=== PATIENT | male | born 1950 | race Caucasian/White ===

== ENCOUNTER → 2021-01-11 11:02 | Outpatient (CLI) | payer MEDICARE, OTHER, SELFPAY ==
[2021-01-11 20:58] LABS: COVID19 - ORCAS (NP or Nasal) Negative (Negative)
== END ==
PROVIDERS: Visit Provider Physician Assistant
DX: Z20.822 Contact with and (suspected) exposure to COVID-19 (principal); R05.9 Cough, unspecified
CPT/HCPCS: U0003

== ENCOUNTER → 2023-05-28 14:57 | Outpatient (CLI) | payer MEDICARE, OTHER, SELFPAY ==
--- NOTE | 2023-05-28 15:00 | DI.CT.S_ITS ---
PROCEDURE: CT LUNG LOW DOSE SCREENING INDICATIONS: lung cancer screening TECHNIQUE: Noncontrast 2.0-2.5 mm thick sections acquired from the pulmonary apices to the posterior costophrenic angles. 7 mm thick axial MIP, and 5 mm coronal and sagittal reformats were then acquired. For radiation dose reduction, the following was used: automated exposure control, adjustment of mA and/or kV according to patient size. COMPARISON: [facility], CT, CT LOW DOSE LUNG CA SCREENING, 03/29/2020, 14:47. FINDINGS: Image quality: Diagnostic. Lower Neck: No enlarged lymph nodes. Thyroid: No thyroid nodules which require sonographic follow up, per consensus guidelines. Axillae: No enlarged lymph nodes. Chest Wall: Unremarkable. Bones: Unremarkable. Lungs and Pleura: No pneumothorax or pleural effusions. There is moderate centrilobular emphysema with an apical predominance. Focal airspace opacities are present within the superior segment of the left lower lobe (series 3/image 121). Heart: Heart size is normal. No pericardial effusion. Thoracic Vessels: The aorta and pulmonary arteries demonstrate normal size. Scattered atheromatous calcifications are present within the aortic arch. Mediastinum and Chloe: No enlarged lymph nodes. Esophagus: No wall thickening. No hiatal hernia. Upper Abdomen: Visualized upper abdomen solid organs and bowel loops appear normal. IMPRESSION: 1. Focal airspace opacities within the superior segment of the left lower lobe suspicious for aspiration/infection. 2. No suspicious pulmonary nodules or mass lesions which require follow-up. LUNG-RADS 3; probably benign. Consider 3-6 month follow-up to ensure resolution of this finding. Clinically Significant Non-pulmonary Findings: Thoracic aortic atherosclerosis. Dictated by: Rona Leyva M.D. on 05/28/2023 at 16:06 Approved by: Rona Leyva M.D. on 05/28/2023 at 16:11
== END ==
LOC: CT 14:59
PROVIDERS: PCP Family Medicine; Referring Provider Internal Medicine; Visit Provider Internal Medicine
DX: Z12.2 Encounter for screening for malignant neoplasm of respiratory organs (principal); F17.218 Nicotine dependence, cigarettes, with other nicotine-induced disorders; J43.2 Centrilobular emphysema; I70.0 Atherosclerosis of aorta
CPT/HCPCS: 71271

== ENCOUNTER → 2023-12-09 12:21 | Outpatient (CLI) | payer MEDICARE, OTHER, SELFPAY ==
--- NOTE | 2023-12-09 12:22 | DI.CT.S_ITS ---
PROCEDURE: CT CHEST WO CON INDICATIONS: H/o pneumonia, not improving, eval for pneumonia or effusion TECHNIQUE: Noncontrast 5 mm thick sections acquired from the pulmonary apices to the posterior costophrenic angles. 1 mm lung window, 5 mm thick coronal and sagittal and 7 mm axial MIP reformats were then acquired. For radiation dose reduction, the following was used: automated exposure control, adjustment of mA and/or kV according to patient size. COMPARISON: [facility], CT, CT LUNG LOW DOSE SCREENING, 05/28/2023, 15:16. FINDINGS: Image quality: Diagnostic. Lower Neck: No enlarged lymph nodes. Thyroid: Stable size of a partially obscured 1.9 cm left thyroid nodule. Axillae: No enlarged lymph nodes. Chest Wall: Unremarkable. Bones: Unremarkable. Lungs and Pleura: Extensive centrilobular emphysema involving both upper lobes. 5.4 cm x 2.8 cm ovoid soft tissue mass with central cavitation and adjacent cystic changes. Slightly more inferiorly, there is a 2.1 cm S rounded spiculated mass associated with this cavitary lesion. Focal area of subpleural soft tissue thickening along the medial right upper lobe abutting the mediastinum. Area of consolidation with bronchiectasis involving the superior segment of the left lower lobe. These findings are all new compared to prior chest CT of 05/28/2023. No evidence of pneumothorax or pleural effusion. Heart: Heart size is normal. No pericardial effusion. Left-sided pacemaker is in place with leads terminating in the right atrium, right ventricle and coronary sinus. Thoracic Vessels: The aorta and pulmonary arteries demonstrate normal size. Mediastinum and Chloe: No enlarged lymph nodes. Esophagus: No wall thickening. No hiatal hernia. Upper Abdomen: Visualized upper abdomen solid organs and bowel loops appear normal. IMPRESSION: 1. 5.4 cm x 2.8 cm ovoid right upper lobe soft tissue mass with central cavitation and adjacent cystic changes seen within a background of extensive centrilobular emphysema. Slightly more inferiorly, there is a 2.1 cm rounded spiculated soft tissue mass associated with this cavitary lesion. These findings are new compared to prior chest CT of 05/28/2023 and could represent necrotizing pneumonia with adjacent scar, however, an underlying neoplasm is not entirely excluded. Continued chest CT follow-up in 3 months and/or comparison with more recent outside imaging is recommended. 2. Focal area of subpleural soft tissue thickening along the medial right upper lobe abutting the mediastinum and area of consolidation within the superior segment of the left lower lobe with associated bronchiectasis and adjacent architectural distortion possibly related to scarring. Continued follow-up with attention to these abnormalities on follow-up chest CT is recommended. Dictated by: Fam Hunt M.D. on 12/09/2023 at 16:43 Approved by: Fam Hunt M.D. on 12/09/2023 at 16:55
== END ==
PROVIDERS: PCP Family Medicine; Referring Provider Internal Medicine Critical Care Medicine; Visit Provider Internal Medicine Critical Care Medicine
DX: J18.9 Pneumonia, unspecified organism (principal); R91.8 Other nonspecific abnormal finding of lung field; J47.9 Bronchiectasis, uncomplicated; E04.1 Nontoxic single thyroid nodule; J43.2 Centrilobular emphysema; Z95.0 Presence of cardiac pacemaker
CPT/HCPCS: 71250

== ENCOUNTER → 2024-01-11 10:15 | Outpatient (CLI) | payer MEDICARE, OTHER, SELFPAY ==
--- NOTE | 2024-01-11 10:17 | DI.CT.S_ITS ---
PROCEDURE: CT CHEST W CON INDICATIONS: Pneumonia , eval for change TECHNIQUE: After the administration of intravenous contrast, 5 mm thick sections acquired from the pulmonary apices to the posterior costophrenic angles. 1 mm axial lung, 5 mm thick coronal and sagittal reformats and 7 mm axial MIP were acquired. For radiation dose reduction, the following was used: automated exposure control, adjustment of mA and/or kV according to patient size. COMPARISON: [facility], CT, CT CHEST WO CON, 12/09/2023, 12:28. 05/28/2023 low-dose chest CT FINDINGS: Image quality: Diagnostic Lungs and pleura: Background moderate severe emphysema. In the right upper lobe, the area of cavitary consolidation has decreased measuring a thickness of 1.3 cm previously 2.5 cm. The spiculated nodule along the fissure however is similar measuring 2 x 1.9 cm (3/133, 115). Similar scarring in the medial portion of the right upper lobe. In the left lung, persistent bronchiectasis and architectural distortion is seen in the posterior mid lung (3/140) measuring a thickness of 1.4 cm. No this is new from 05/28/2023. Other smaller nodules are present, for example a cystic region in the right lung apex with thickened wall (3/66) and another cystic region with thickened wall in the left anterior lung 3/152. No pleural effusions. Mediastinum, heart, and esophagus: A left chest wall pulse generator with electrode leads is seen. No hiatal hernia. There are bilateral pulmonary emboli, particularly seen along the wall in a peripheral orientation. The most proximal region reaches the right and left pulmonary arteries. No definite focal enlarged lymph node identified. Chest wall and thyroid: 1.7 cm left thyroid nodule. Chest wall is unremarkable. Upper abdomen: No gross abnormality upper abdomen Bones: There are degenerative changes. IMPRESSION: Bilateral pulmonary emboli involving the right and left pulmonary arteries extending to the segmental and subsegmental branches, peripheral position of the clot is suggestive of subacute to chronic time course. Spiculated right mid lung nodule along the fissure measuring up to 2 cm is suspicious for primary lung malignancy. Right upper lung area of cavitary consolidation has decreased, with moderate persistent opacity and architectural distortion. Persistent bronchiectasis and opacity with architectural distortion also seen in the mid posterior left lung. These are moderate suspicion for malignancy versus persistent infection. Other smaller nodules are present, particularly seen as wall thickening at the periphery of pulmonary cystic changes. These are suspicious for indolent/early malignancies. A PET-CT could be helpful Dictated by: Sunil Evans M.D. on 01/11/2024 at 16:04 Approved by: Sunil Evans M.D. on 01/11/2024 at 16:17
[2024-01-11 10:52] LABS: BUN Creatinine Ratio 22.9 (6-22); Blood Urea Nitrogen 40 mg/dL (9-20); Calcium 9.2 mg/dL (8.4-10.2); Carbon Dioxide 27 mmol/L (22-32); Chloride 102 mmol/L (98-107); Estimated Glomerular Filt Rate 41 mL/min (>60); Glucose 131 mg/dL (80-110); HEMOLYSIS < 15 (0-50); Potassium 5.2 mmol/L (3.4-5.1); Sodium 135 mmol/L (137-145)
== END ==
PROVIDERS: PCP Family Medicine; Referring Provider Internal Medicine Critical Care Medicine; Visit Provider Internal Medicine Critical Care Medicine
DX: J18.9 Pneumonia, unspecified organism (principal); I26.99 Other pulmonary embolism without acute cor pulmonale; I28.8 Other diseases of pulmonary vessels; R91.8 Other nonspecific abnormal finding of lung field; J47.9 Bronchiectasis, uncomplicated
CPT/HCPCS: 36415; 71260; 80048; Q9967

== ENCOUNTER 2024-01-11 18:32 | Inpatient (IN) | payer MEDICARE, OTHER, SELFPAY ==
[2024-01-11] VITALS (16 sets, daily range): BP systolic 108–133; BP diastolic 59–86; PULSE 67–90; RESP 17–28; TEMP 37.2; O2SAT 93–98; BMI 24.0
--- NOTE | 2024-01-11 18:42 | ED.GENADULT ---
HPI - General Adult <Joy Dorado MD - Last Filed: 01/12/24 07:13> General Chief complaint: Shortness of Breath/Dyspnea Stated complaint: sent by doctor, carmenisim Time Seen by Provider: 01/11/24 18:39 History of Present Illness HPI narrative: 73-year-old male with history of emphysema, tobacco abuse, coronary disease, permanent pacemaker presents for pulmonary embolism. Patient has been under the care of pulmonology Dr. García for pneumonia. Patient states that he has been short of breath for the last month and a half, worse over the last 3 weeks. He has been on prednisone, nebulizers, and Augmentin without improvement. Today the patient had an outpatient CT scan to assess the progression pneumonia. On the CT scan bilateral pulmonary emboli were noted. Patient was called back to the emergency department for repeat evaluation. Patient states that while lying in the ED bed he was not short of breath, however if he gets up to walk around he feels very winded, and this has progressed rapidly over the last 3 weeks. He still smokes cigarettes. He does not wear oxygen at home. Related Data Home Medications Medication Instructions Recorded Confirmed albuterol sulfate 90 mcg/actuation 2 inh inhalation Q4H PRN 05/14/23 11/12/23 breath activated powder inhaler atorvastatin 20 mg tablet 20 mg PO BEDTIME 05/14/23 11/12/23 carvedilol 25 mg tablet 25 mg PO BID 05/14/23 11/12/23 glipizide 2.5 mg tablet 2.5 mg PO DAILY 05/14/23 11/12/23 lisinopril 10 mg tablet 10 mg PO BID 05/14/23 11/12/23 metformin 500 mg tablet 500 mg PO BID 05/14/23 11/12/23 spironolactone 25 mg tablet 25 mg PO DAILY 05/14/23 11/12/23 umeclidinium 62.5 mcg/actuation 1 inh inhalation DAILY 05/14/23 11/12/23 blister powder for inhalation (Incruse Ellipta) Previous Rx's Medication Instructions Recorded fluticasone fur. 200 mcg-umeclid 1 inh inhalation DAILY #60 ea 05/14/23 62.5 mcg-vilant 25 mcg inhalat.powder (Trelegy Ellipta) prednisone 10 mg tablet 10 mg PO DAILY #90 tabs 05/14/23 furosemide 20 mg tablet 20 mg PO DAILY #5 tabs 11/12/23 ipratropium 0.5 mg-albuterol 3 mg 3 ml inhalation Q6H PRN shortness 11/12/23 (2.5 mg base)/3 mL nebulization of breath or wheezing #90 mL soln prednisone 20 mg tablet 40 mg (2 x 20 mg) PO DAILY #10 tabs 11/12/23 amoxicillin 875 mg-potassium 1 tab PO BID #42 tabs 12/11/23 clavulanate 125 mg tablet Allergies Allergy/AdvReac Type Severity Reaction Status Date / Time No Known Allergies Allergy Uncoded 01/11/24 20:54 Patient History <Joy Dorado MD - Last Filed: 01/12/24 07:13> Social History Smoking Status: Current every day smoker Smoking Status: Current every day smoker Exam <Joy Dorado MD - Last Filed: 01/12/24 07:13> Initial Vital Signs Initial Vital Signs: Vital Signs Blood Pressure 133/80 01/11/24 18:39 Const: Awake, alert, appears chronically unwell Cardiac: regular rate, regular rhythm RESP: unlabored, clear bilaterally MSK: 2+ nonpitting edema of RLE to thigh. No edema LLE Skin: Warm, Dry, intact, no rashes Neuro: AO x3, CN II-XII grossly intact, moves all extremities <Padmaja Ibanez MD - Last Filed: 01/12/24 08:00> Initial Vital Signs Initial Vital Signs: Vital Signs Blood Pressure 133/80 01/11/24 18:39 Course <Joy Dorado MD - Last Filed: 01/12/24 07:13> Orders Ordered: ED Orders 01/11/24 23:02 CT angio chest PE protocol Stat 01/12/24 04:17 EC echo limited Stat Heparin Sodium/Dextrose (Heparin Drip) 25,000 unit in 500 mls @ 27.433 mls/hr IV CONT DANE; Protocol Last Admin: 01/12/24 04:41 Dose: 18 units/kg/hr, 27.433 mls/hr Documented By: LS Co-signed By: HNG Discontinued Medications Enoxaparin Sodium (Enoxaparin 100 Mg/Ml Syringe) 75 mg SUBCUT NOW ONE Stop: 01/11/24 21:46 Last Admin: 01/11/24 21:57 Dose: 75 mg Documented By: ERIN Heparin Sodium/Dextrose (Heparin Drip) 25,000 unit in 500 mls @ 18.289 mls/hr IV CONT DANE; Protocol Last Admin: 01/12/24 04:30 Dose: 12 units/kg/hr, 18.289 mls/hr Documented By: LENI Co-signed By: IDANIA Ceftriaxone Sodium 2,000 mg/ (Sodium Chloride) 100 mls @ 200 mls/hr IV NOW ONE Stop: 01/12/24 04:26 Last Infusion: 01/12/24 04:58 Dose: Infused Documented By: Admin: 01/12/24 04:33 Dose: 200 mls/hr Documented By: LENI Azithromycin 500 mg/ Dextrose 250 mls @ 250 mls/hr IV NOW ONE Stop: 01/12/24 04:26 Last Titration: 01/12/24 06:28 Dose: 0 mls/hr Vital Signs Vital signs: Vital Signs - 8 hr 01/11/24 23:30 01/12/24 00:00 01/12/24 00:01 Pulse Rate 71 Respiratory Rate 22 Blood Pressure 111/59 L 106/66 Pulse Oximetry 96 01/12/24 00:30 01/12/24 00:31 01/12/24 00:31 Pulse Rate 74 74 Respiratory Rate 21 23 Blood Pressure 132/70 Pulse Oximetry 95 95 01/12/24 01:00 01/12/24 01:01 01/12/24 01:30 Pulse Rate 72 74 Respiratory Rate 20 20 Blood Pressure 121/82 Pulse Oximetry 95 94 01/12/24 01:30 01/12/24 02:00 01/12/24 02:00 Pulse Rate 69 Respiratory Rate 21 Blood Pressure 127/74 106/62 Pulse Oximetry 94 01/12/24 02:30 01/12/24 02:30 01/12/24 03:00 Pulse Rate 72 Respiratory Rate 19 Blood Pressure 114/59 L 115/72 Pulse Oximetry 93 01/12/24 03:00 01/12/24 03:30 01/12/24 03:30 Pulse Rate 71 68 Respiratory Rate 20 Blood Pressure 130/73 Pulse Oximetry 93 95 01/12/24 04:00 01/12/24 04:30 01/12/24 04:30 Pulse Rate 70 69 Respiratory Rate 18 Blood Pressure 112/69 Pulse Oximetry 97 95 01/12/24 05:00 01/12/24 05:01 01/12/24 05:01 Pulse Rate 67 72 Respiratory Rate 24 26 H Blood Pressure 95/67 Pulse Oximetry 97 96 01/12/24 05:30 01/12/24 05:30 01/12/24 06:00 Pulse Rate 65 Respiratory Rate 21 Blood Pressure 114/76 125/67 Pulse Oximetry 96 01/12/24 06:00 Pulse Rate 64 Respiratory Rate 22 Blood Pressure Pulse Oximetry 98 <Padmaja Ibanez MD - Last Filed: 01/12/24 08:00> Orders Ordered: ED Orders 01/11/24 23:02 CT angio chest PE protocol Stat 01/12/24 04:17 EC echo limited Stat Heparin Sodium/Dextrose (Heparin Drip) 25,000 unit in 500 mls @ 27.433 mls/hr IV CONT DANE; Protocol Last Admin: 01/12/24 04:41 Dose: 18 units/kg/hr, 27.433 mls/hr Documented By: LENI Co-signed By: IDANIA Discontinued Medications Enoxaparin Sodium (Enoxaparin 100 Mg/Ml Syringe) 75 mg SUBCUT NOW ONE Stop: 01/11/24 21:46 Last Admin: 01/11/24 21:57 Dose: 75 mg Documented By: ERIN Heparin Sodium/Dextrose (Heparin Drip) 25,000 unit in 500 mls @ 18.289 mls/hr IV CONT DANE; Protocol Last Admin: 01/12/24 04:30 Dose: 12 units/kg/hr, 18.289 mls/hr Documented By: LENI Co-signed By: IDANIA Ceftriaxone Sodium 2,000 mg/ (Sodium Chloride) 100 mls @ 200 mls/hr IV NOW ONE Stop: 01/12/24 04:26 Last Infusion: 01/12/24 04:58 Dose: Infused Documented By: Admin: 01/12/24 04:33 Dose: 200 mls/hr Documented By: LENI Azithromycin 500 mg/ Dextrose 250 mls @ 250 mls/hr IV NOW ONE Stop: 01/12/24 04:26 Last Titration: 01/12/24 06:28 Dose: 0 mls/hr Vital Signs Vital signs: Vital Signs - 8 hr 01/11/24 23:30 01/12/24 00:00 01/12/24 00:01 Pulse Rate 71 Respiratory Rate 22 Blood Pressure 111/59 L 106/66 Pulse Oximetry 96 01/12/24 00:30 01/12/24 00:31 01/12/24 00:31 Pulse Rate 74 74 Respiratory Rate 21 23 Blood Pressure 132/70 Pulse Oximetry 95 95 01/12/24 01:00 01/12/24 01:01 01/12/24 01:30 Pulse Rate 72 74 Respiratory Rate 20 20 Blood Pressure 121/82 Pulse Oximetry 95 94 01/12/24 01:30 01/12/24 02:00 01/12/24 02:00 Pulse Rate 69 Respiratory Rate 21 Blood Pressure 127/74 106/62 Pulse Oximetry 94 01/12/24 02:30 01/12/24 02:30 01/12/24 03:00 Pulse Rate 72 Respiratory Rate 19 Blood Pressure 114/59 L 115/72 Pulse Oximetry 93 01/12/24 03:00 01/12/24 03:30 01/12/24 03:30 Pulse Rate 71 68 Respiratory Rate 20 Blood Pressure 130/73 Pulse Oximetry 93 95 01/12/24 04:00 01/12/24 04:30 01/12/24 04:30 Pulse Rate 70 69 Respiratory Rate 18 Blood Pressure 112/69 Pulse Oximetry 97 95 01/12/24 05:00 01/12/24 05:01 01/12/24 05:01 Pulse Rate 67 72 Respiratory Rate 24 26 H Blood Pressure 95/67 Pulse Oximetry 97 96 01/12/24 05:30 01/12/24 05:30 01/12/24 06:00 Pulse Rate 65 Respiratory Rate 21 Blood Pressure 114/76 125/67 Pulse Oximetry 96 01/12/24 06:00 Pulse Rate 64 Respiratory Rate 22 Blood Pressure Pulse Oximetry 98 Medical Decision Making <Joy Dorado MD - Last Filed: 01/12/24 07:13> Lab Data 01/11/24 18:45 01/11/24 18:45 Labs: Lab Results 01/11/24 Range/Units 18:45 WBC 10.0 (4.5-11.0) X10^3/uL RBC 4.56 (4.5-5.9) X10^6/uL Hgb 13.5 (13.5-17.5) g/dL Hct 41.6 (41-53) % MCV 91.2 (80-100) fL MCH 29.6 (26-34) PG MCHC 32.5 (30-36) % RDW 15.2 H (11.6-14.8) % Plt Count 277 (150-400) X10^3/uL Neut % (Auto) 61.3 (50-75) % Lymph % (Auto) 15.9 L (25-40) % Owen % (Auto) 11.1 (3-14) % Eos % (Auto) 10.8 H (2-4) % Baso % (Auto) 0.9 (0-2) % Neut # (Auto) 6100 (9228-8721) /uL Lymph # (Auto) 1600 (4729-5609) /uL Owen # (Auto) 1100 H (0-900) /uL Eos # (Auto) 1100 H (0-450) /uL Baso # (Auto) 100 (0-100) /uL PT 11.6 (9.4-12.5) SECONDS INR 1.0 (0.9-1.3) Sodium 135 L (137-145) mmol/L Potassium 4.8 (3.4-5.1) mmol/L Chloride 102 (98-107) mmol/L Carbon Dioxide 26 (22-32) mmol/L BUN 37 H (9-20) mg/dL Creatinine 1.48 H (0.66-1.25) mg/dL Estimated GFR 50 L (>60) mL/min BUN/Creatinine Ratio 25.0 H (6-22) Glucose 93 (80-110) mg/dL Calcium 9.0 (8.4-10.2) mg/dL Total Bilirubin 0.4 (0.2-1.3) mg/dL AST 32 (17-59) IU/L ALT 30 (<50) IU/L Alkaline Phosphatase 119 (38-126) U/L Total Creatine Kinase 62 (55-170) U/L Troponin I 0.023 (0.01-0.034) ng/mL NT-Pro-B Natriuret Pep 1770 H (<125) pg/mL Total Protein 6.8 (6.3-8.2) g/dL Albumin 4.0 (3.5-5.0) g/dL Globulin 2.8 (1.7-4.1) g/dL Albumin/Globulin Ratio 1.4 (1.0-2.8) Imaging Data US - DVT: Radiologist's Impression: PROCEDURE: US PERIPH VENOUS LOW EXTREM BI INDICATIONS: BILAT PE, EVAL FOR DVT TECHNIQUE: Real-time imaging, as well as color and pulse Doppler interrogation, were performed of the deep veins of both legs from the inguinal ligament to the popliteal fossa, with documentation of the visualized calf veins. COMPARISON: None. FINDINGS: Right: Internal echoes and incomplete compressibility noted involving the common femoral, entire superficial femoral, popliteal veins. Associated diffuse subcutaneous edema. Veins in the calf appear patent with appropriate compressibility. Left: The common femoral, femoral, popliteal, and the visualized calf veins are normally compressible, and free of intraluminal thrombus. Color and pulse Doppler demonstrate normal phasic intravascular flow. There is normal augmentation response to distal compression maneuver. IMPRESSION: Nonocclusive right lower extremity deep venous thrombosis. Unremarkable left lower extremity deep venous system. Approved by: Bob Angeles M.D. on 01/11/2024 at 22:59 CT scan - chest: Radiologist's Impression: ADDENDUMThis report includes an Addendum and supersedes previous reports for this exam. PROCEDURE: CT CHEST W CON INDICATIONS: Pneumonia , eval for change TECHNIQUE: After the administration of intravenous contrast, 5 mm thick sections acquired from the pulmonary apices to the posterior costophrenic angles. 1 mm axial lung, 5 mm thick coronal and sagittal reformats and 7 mm axial MIP were acquired. For radiation dose reduction, the following was used: automated exposure control, adjustment of mA and/or kV according to patient size. COMPARISON: [facility], CT, CT CHEST WO CON, 12/09/2023, 12:28. 05/28/2023 low-dose chest CT FINDINGS: Image quality: Diagnostic Lungs and pleura: Background moderate severe emphysema. In the right upper lobe, the area of cavitary consolidation has decreased measuring a thickness of 1.3 cm previously 2.5 cm. The spiculated nodule along the fissure however is similar measuring 2 x 1.9 cm (3/133, 115). Similar scarring in the medial portion of the right upper lobe. In the left lung, persistent bronchiectasis and architectural distortion is seen in the posterior mid lung (3/140) measuring a thickness of 1.4 cm. No this is new from 05/28/2023. Other smaller nodules are present, for example a cystic region in the right lung apex with thickened wall (3/66) and another cystic region with thickened wall in the left anterior lung 3/152. No pleural effusions. Mediastinum, heart, and esophagus: A left chest wall pulse generator with electrode leads is seen. No hiatal hernia. There are bilateral pulmonary emboli, particularly seen along the wall in a peripheral orientation. The most proximal region reaches the right and left pulmonary arteries. No definite focal enlarged lymph node identified. Chest wall and thyroid: 1.7 cm left thyroid nodule. Chest wall is unremarkable. Upper abdomen: No gross abnormality upper abdomen Bones: There are degenerative changes. IMPRESSION: Bilateral pulmonary emboli involving the right and left pulmonary arteries extending to the segmental and subsegmental branches, peripheral position of the clot is suggestive of subacute to chronic time course. Spiculated right mid lung nodule along the fissure measuring up to 2 cm is suspicious for primary lung malignancy. Right upper lung area of cavitary consolidation has decreased, with moderate persistent opacity and architectural distortion. Persistent bronchiectasis and opacity with architectural distortion also seen in the mid posterior left lung. These are moderate suspicion for malignancy versus persistent infection. Other smaller nodules are present, particularly seen as wall thickening at the periphery of pulmonary cystic changes. These are suspicious for indolent/early malignancies. A PET-CT could be helpful Dictated by: Sunil Evans M.D. on 01/11/2024 at 16:04 Approved by: Sunil Evans M.D. on 01/11/2024 at 16:17 ADDENDUM: Signs of right heart strain are present, with distension of the pulmonary trunk up to 3.8 cm and increased RV to LV ratio. I called Luis Hand's spouse. They will return to [place] for emergency evaluation now. [facility] tomography technologist also called the ED to inform of patient's anticipated arrival. Dictated by: Sunil Evans M.D. on 01/11/2024 at 16:48 Approved by: Sunil Evans M.D. on 01/11/2024 at 16:52 [facility] Narrative Medical decision making narrative: Patient with known underlying lung disease, currently being treated for pneumonia with prolonged Augmentin course with progressive shortness of breath. Today patient was supposed to have an outpatient CT scan to evaluate the presumed pneumonia, however incidentally PEs were found. Patient is denying symptoms while in bed but states that he has had significant loss in exercise tolerance over the last [address] also notes nodules concerning for malignancy. Saturating well on room air, no acute distress. Laboratory work ordered. Patient quite dyspneic with ambulation, however pulse ox steady at 96-97% on room air. Laboratory work shows WBC count 10.0, hemoglobin 13.5, platelet count 277, sodium 135, potassium 4.8, creatinine 1.48, troponin 0.023, BNP 1770. Case discussed with utilization management um nurse cell cleaner at [facility], who can try to see patient in clinic next week, however he does not consult with and cannot see any records or see the patient in the hospital and cannot provide further recommendations at this time. Patient does live on [facility] and will have limited access to healthcare resources if he goes home. DVT scan ordered to see if there is any underlying lower extremity clot burden that could cause a problem in the near future. DVT scan shows extensive right lower extremity DVT. The previous CT scan was a contrasted scan, but not in angio scan. To more thoroughly evaluate the pulmonary arteries a angio was ordered. Angio scan does show a near saddle embolus with possible signs of developing right heart strain with trace reflux of contrast into the IVC. Images pushed to outside hospital to see if patient is an interventional candidate. Attempted numerous times to send images to [facility], however due to technical difficulties images were never able to be sent. Will attempt Transfer center nurse informs me that despite numerous pages, no specialist has answered and consult request unable to be completed at this time. 0250 - Case discussed with interventional radiologist Dr. Mosquera at [facility]. PESI score 123. Patient has 2 options. Since he is hemodynamically stable and with relatively few symptoms at rest then he could reasonably stay at [facility] on heparin, especially since symptoms have been ongoing for at least the last 3 weeks. If patient stays at [facility] he recommends an echocardiogram and monitoring for any deterioration. The patient would feel better faster after thrombectomy and he is willing to perform a thrombectomy if the patient was willing to be transferred to [place] for the procedure. This was discussed at bedside with patient extensively. Both options were presented to the patient. He stated that he would prefer not to be transferred to another hospital at this time and would like to stay at [facility]. Patient has already received Lovenox, heparin drip ordered. Plan to admit patient for further observation. Echo ordered for AM. Case discussed with tele-hospitalist Dr. Conway, who declined admission due to clot burden and potential risk for future cardiac event and strongly recommended transfer. Patient unhappy with having to be transferred, but agrees to be transferred since he cannot be admitted here. reconsulted for transfer. [facility] interventional radiology Dr. Mosquera will call back after reviewing images. 0700 - Case discussed with Dr. Moser of Interventional radiology. He reviewed the images and stated that the clot burden appears to be subacute to chronic and not a good candidate for intervention. Even with the DVT present their recommendation is anticoagulation and not intervention at this time. 0715 -care of patient is signed out to daytime physician <Padmaja Ibanez MD - Last Filed: 01/12/24 08:00> Lab Data Labs: Lab Results 01/11/24 Range/Units 18:45 WBC 10.0 (4.5-11.0) X10^3/uL RBC 4.56 (4.5-5.9) X10^6/uL Hgb 13.5 (13.5-17.5) g/dL Hct 41.6 (41-53) % MCV 91.2 (80-100) fL MCH 29.6 (26-34) PG MCHC 32.5 (30-36) % RDW 15.2 H (11.6-14.8) % Plt Count 277 (150-400) X10^3/uL Neut % (Auto) 61.3 (50-75) % Lymph % (Auto) 15.9 L (25-40) % Owen % (Auto) 11.1 (3-14) % Eos % (Auto) 10.8 H (2-4) % Baso % (Auto) 0.9 (0-2) % Neut # (Auto) 6100 (6823-3939) /uL Lymph # (Auto) 1600 (5340-4541) /uL Owen # (Auto) 1100 H (0-900) /uL Eos # (Auto) 1100 H (0-450) /uL Baso # (Auto) 100 (0-100) /uL PT 11.6 (9.4-12.5) SECONDS INR 1.0 (0.9-1.3) Sodium 135 L (137-145) mmol/L Potassium 4.8 (3.4-5.1) mmol/L Chloride 102 (98-107) mmol/L Carbon Dioxide 26 (22-32) mmol/L BUN 37 H (9-20) mg/dL Creatinine 1.48 H (0.66-1.25) mg/dL Estimated GFR 50 L (>60) mL/min BUN/Creatinine Ratio 25.0 H (6-22) Glucose 93 (80-110) mg/dL Calcium 9.0 (8.4-10.2) mg/dL Total Bilirubin 0.4 (0.2-1.3) mg/dL AST 32 (17-59) IU/L ALT 30 (<50) IU/L Alkaline Phosphatase 119 (38-126) U/L Total Creatine Kinase 62 (55-170) U/L Troponin I 0.023 (0.01-0.034) ng/mL NT-Pro-B Natriuret Pep 1770 H (<125) pg/mL Total Protein 6.8 (6.3-8.2) g/dL Albumin 4.0 (3.5-5.0) g/dL Globulin 2.8 (1.7-4.1) g/dL Albumin/Globulin Ratio 1.4 (1.0-2.8) MDM Narrative Medical decision making narrative: Patient with known underlying lung disease, currently being treated for pneumonia with prolonged Augmentin course with progressive shortness of breath. Today patient was supposed to have an outpatient CT scan to evaluate the presumed pneumonia, however incidentally PEs were found. Patient is denying symptoms while in bed but states that he has had significant loss in exercise tolerance over the last [address] also notes nodules concerning for malignancy. Saturating well on room air, no acute distress. Laboratory work ordered. Patient quite dyspneic with ambulation, however pulse ox steady at 96-97% on room air. Laboratory work shows WBC count 10.0, hemoglobin 13.5, platelet count 277, sodium 135, potassium 4.8, creatinine 1.48, troponin 0.023, BNP 1770. Case discussed with utilization management um nurse cell cleaner at [facility], who can try to see patient in clinic next week, however he does not consult with [facility] and cannot see any records or see the patient in the hospital and cannot provide further recommendations at this time. Patient does live on [facility] and will have limited access to healthcare resources if he goes home. DVT scan ordered to see if there is any underlying lower extremity clot burden that could cause a problem in the near future. DVT scan shows extensive right lower extremity DVT. The previous CT scan was a contrasted scan, but not in angio scan. To more thoroughly evaluate the pulmonary arteries a angio was ordered. CT Angio scan does fromt he ER show a near saddle embolus with possible signs of developing right heart strain with trace reflux of contrast into the IVC. Images pushed to outside hospital to see if patient is an interventional candidate. Attempted numerous times to send images to [facility], however due to technical difficulties images were never able to be sent. Will attempt Transfer center nurse informs me that despite numerous pages, no specialist has answered and consult request unable to be completed at this time. 0250 - Case discussed with interventional radiologist Dr. Mosquera at [facility]. PESI score 123. Patient has 2 options. Since he is hemodynamically stable and with relatively few symptoms at rest then he could reasonably stay at [facility] on heparin, especially since symptoms have been ongoing for at least the last 3 weeks. If patient stays at [facility] he recommends an echocardiogram and monitoring for any deterioration. The patient would feel better faster after thrombectomy and he is willing to perform a thrombectomy if the patient was willing to be transferred to [place] for the procedure. This was discussed at bedside with patient extensively. Both options were presented to the patient. He stated that he would prefer not to be transferred to another hospital at this time and would like to stay at [facility]. Patient has already received Lovenox, heparin drip ordered. Plan to admit patient for further observation. Echo ordered for AM. Case discussed with tele-hospitalist Dr. Conway, who declined admission due to clot burden and potential risk for future cardiac event and strongly recommended transfer. Patient unhappy with having to be transferred, but agrees to be transferred since he cannot be admitted here. reconsulted for transfer. [facility] interventional radiology Dr. Mosquera will call back after reviewing images. 0700 - Case discussed with Dr. Moser of Interventional radiology. He reviewed the images and stated that the clot burden appears to be subacute to chronic and not a good candidate for intervention. Even with the DVT present their recommendation is anticoagulation and not intervention at this time. 0715 -care of patient is signed out to daytime physician 755am Dr Carey. Discussed with Dr Cooper, hospitalist. Pt will be admitted to [facility]. Patient updated on plans Critical Care Time <Joy Dorado MD - Last Filed: 01/12/24 07:13> Critical Care Time Critical Care Time: Yes Total Critical Care Time: 73 Attestation: Bilateral PE requiring anticoagulation, transfer for higher level of care, numerous discussion with pulmonology, transfer service, interventional Radiology Discharge Plan Departure Patient Disposition: Admitted As Inpatient Clinical Impression: Cavitary pneumonia Pulmonary embolism Qualifiers: Pulmonary embolism type: unspecified Chronicity: acute Acute cor pulmonale presence: with acute cor pulmonale Qualified Code(s): I26.09 - Other pulmonary embolism with acute cor pulmonale DVT (deep venous thrombosis) Qualifiers: DVT location: lower extremity Affected thrombotic vein of extremity: unspecified vein of extremity Chronicity: acute Laterality: right Qualified Code(s): I82.401 - Acute embolism and thrombosis of unspecified deep veins of right lower extremity Admit Date/Time: 01/12/24 07:48 Admit Provider: Stephanie Cooper
--- NOTE | 2024-01-11 18:52 | EKG_ITS ---
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
[2024-01-11 18:53] LABS: Add Manual Diff / Slide Review NO; Basophils Absolute Auto 100 /uL (0-100); Basophils Percent Auto 0.9 % (0-2); Eosinophils Absolute Auto 1100 /uL (0-450); Eosinophils Percent Auto 10.8 % (2-4); Hematocrit 41.6 % (41-53); Hemoglobin 13.5 g/dL (13.5-17.5); Lymphocytes Absolute Auto 1600 /uL (1100-4500); Lymphocytes Percent Auto 15.9 % (25-40); Mean Corpuscular HGB Conc 32.5 % (30-36); Mean Corpuscular Hemoglobin 29.6 PG (26-34); Mean Corpuscular Volume 91.2 fL (80-100); Monocytes Absolute Auto 1100 /uL (0-900); Monocytes Percent Auto 11.1 % (3-14); Neutrophils Absolute Auto 6100 /uL (1500-7000); Neutrophils Percent Auto 61.3 % (50-75); Platelet Count 277 X10^3/uL (150-400); Red Blood Cell Count 4.56 X10^6/uL (4.5-5.9); Red Cell Distribution Width 15.2 % (11.6-14.8)
[2024-01-11 18:59] LABS: Prothrombin Time 11.6 SECONDS (9.4-12.5)
[2024-01-11 19:04] LABS: Alanine Aminotransferase 30 IU/L (<50); Albumin Globulin Ratio 1.4 (1.0-2.8); Alkaline Phosphatase 119 U/L (38-126); Aspartate Aminotransferase 32 IU/L (17-59); Bilirubin Total 0.4 mg/dL (0.2-1.3); Blood Urea Nitrogen 37 mg/dL (9-20); Carbon Dioxide 26 mmol/L (22-32); Chloride 102 mmol/L (98-107); Creatine Kinase 62 U/L (55-170); Estimated Glomerular Filt Rate 50 mL/min (>60); Globulin 2.8 g/dL (1.7-4.1); Glucose 93 mg/dL (80-110); HEMOLYSIS < 15 (0-50); Potassium 4.8 mmol/L (3.4-5.1); Sodium 135 mmol/L (137-145); Total Protein 6.8 g/dL (6.3-8.2)
[2024-01-11 19:15] LABS: NT-proBNP (BNP-Adult 18+) 1770 pg/mL (<125); Troponin I 0.023 ng/mL (0.01-0.034)
--- NOTE | 2024-01-11 21:37 | DI.US.S_ITS ---
PROCEDURE: US PERIPH VENOUS LOW EXTREM BI INDICATIONS: BILAT PE, EVAL FOR DVT TECHNIQUE: Real-time imaging, as well as color and pulse Doppler interrogation, were performed of the deep veins of both legs from the inguinal ligament to the popliteal fossa, with documentation of the visualized calf veins. COMPARISON: None. FINDINGS: Right: Internal echoes and incomplete compressibility noted involving the common femoral, entire superficial femoral, popliteal veins. Associated diffuse subcutaneous edema. Veins in the calf appear patent with appropriate compressibility. Left: The common femoral, femoral, popliteal, and the visualized calf veins are normally compressible, and free of intraluminal thrombus. Color and pulse Doppler demonstrate normal phasic intravascular flow. There is normal augmentation response to distal compression maneuver. IMPRESSION: Nonocclusive right lower extremity deep venous thrombosis. Unremarkable left lower extremity deep venous system. Approved by: Bob Angeles M.D. on 01/11/2024 at 22:59
[2024-01-11] MEDS: ENOXAPARIN 100 MG/ML SYRINGE 75 MG SUBCUT (21:57)
--- NOTE | 2024-01-11 23:02 | DI.CT.S_ITS ---
PROCEDURE: CT ANGIO CHEST PE PROTOCOL INDICATIONS: PE AND LARGE DVT. EVAL STRAIN/ CHRONICITY TECHNIQUE: After the administration of intravenous contrast, 2 mm thick sections acquired from the pulmonary apices to the posterior costophrenic angles. 3-dimensional maximum intensity projection (MIP) coronal and sagittal reformats were then acquired through the thorax. For radiation dose reduction, the following was used: automated exposure control, adjustment of mA and/or kV according to patient size. COMPARISON: [facility], CT, CT CHEST W [facility], 01/11/2024, 10:43. FINDINGS: Cardiovascular: Heart size is normal. There is straightening of the intraventricular septum consistent with right heart strain unchanged from the prior exam. Pacemaker/defibrillator pulse generator and leads stable. Bilateral pulmonary emboli with peripheral adherence remain unchanged in distribution. Lungs and Pleura: Severe pulmonary emphysema. Spiculated nodules, scarring, atelectasis and bronchiectasis are all well described on the prior report Mediastinum: The thyroid is unchanged. No hiatal hernia. Lymph nodes: No mediastinal, hilar or axillary adenopathy. Bones and Chest Wall: Unremarkable. No acute fracture. Upper Abdomen: No significant abnormality present. IMPRESSION: Stable bilateral pulmonary emboli with evidence of right heart strain, unchanged from same day prior study. Underlying pulmonary emphysema, right-sided spiculated nodule, and cavitary consolidation as well as bronchiectasis are also unchanged Approved by: Bob Angeles M.D. on 01/11/2024 at 22:45
[2024-01-12] VITALS (28 sets, daily range): BP systolic 95–141; BP diastolic 59–82; PULSE 62–74; RESP 17–26; TEMP 35.9–36.9; O2SAT 93–99; BMI 24.0
--- NOTE | 2024-01-12 00:50 | PC.NURSE ---
[employer]PER[employer] AGENT note: Attempting to speak to PE/DVT interventionalist at [facility]. First called at 2320, spoke to Nubia. Nubia took the information. Called at 2354 to check in and follow up because we still hadn't received a call from them. Nubia said they were waiting for a seal delivery vehicle team technician on their end. Called at 0047 and spoke to Nubia. Nubia said they're still waiting for the seal delivery vehicle team technician. Told Dr. Dorado what was happening.
[2024-01-12] MEDS: cefTRIAXone 2,000 MG in SODIUM CHLORIDE 0.9% 100 ML 200 MG IV (04:33)
[2024-01-12] MEDS: HEPARIN DRIP 25,000 UNIT/500 ML IV.SOLN 27.433 UNIT IV (04:41)
[2024-01-12] MEDS: AZITHROMYCIN 500 MG in DEXTROSE 5% IN WATER 250 ML 250 MG IV (05:27)
--- NOTE | 2024-01-12 10:01 | PC.NURSE ---
Addendum entered by Dayanna Loredo R.N. 01/12/24 10:04: results in [employer] once released by lab. Original Note: 1000 am Lab called with critical lab result -- PTT=98 Verified patient name & , Readback/confirmed results. 1002 patient admitted to ACU rm# [id number] JAVY Cruz - Called to speak with her and give results she will call me right back, RN currently in a room with patient. Results also in [facility]/released by Lab.
[2024-01-12 10:46] LABS: C-Reactive Protein Quant 1.5 mg/dL (<1.0)
[2024-01-12 11:08] LABS: PTT Partial Thromboplastin Tim 160 SECONDS (25.1-36.5)
[2024-01-12] MEDS: AMOXICILLIN/CLAV 875/125 MG 1 TAB PO ×2 (11:12→20:09)
--- NOTE | 2024-01-12 11:29 | DI.ECHO.S_ITS ---
[facility]+ [facility] : : [address] : : [place] : : [id number] : : Phone: [phone] Echocardiogram Report + + :Name: DHARA DEE Study Date: 01/12/2024 Height: 70 in : :Hospital ReadingLocation: Weight: 168 lb : : Gender: Male BSA: 1.9 m2 : :: 1950 Age: 73 yrs BP: 141/75 mmHg: :Reason For Study: BILATERAL PULMONARY EMBOLISM : :Ordering Physician: JOSE, : :JOSE R Hsieh Performed By: Britni Joya : :Referring: JOSE R GARCIA : + + Interpretation Summary 1) Small left ventricular cavity size with mildly reduced thickness (concentric) and low normal systolic function (EF 50-55%). 2) Mildly enlarged right ventricle with moderately reduced function. Yusuf's sign present. 3) No significant valvular abnormalities. 4) The right ventricular systolic pressure is estimated to be at least 58 mmHg based on an estimated right atrial pressure of 3 mm Hg. 5) No prior Echo available for comparison. Findings consistent with acute cor pulmonale. Procedure: A two-dimensional transthoracic echocardiogram with color flow and Doppler was performed. The study quality was technically adequate. There is no prior echocardiogram noted for this patient. The patient was in sinus rhythm with heart rates between 62-72 bpm during the exam. Left Ventricle: The left ventricular cavity is small. There is mild concentric left ventricular hypertrophy. A false chord is noted (normal variant). The ejection fraction is estimated to be 50-55%. There is a significant dyssynchronous contraction pattern due to the paced rhythm. Right Ventricle: There is a pacemaker lead in the right ventricle. The right ventricle is mildly dilated. Yusuf's sign present. Right ventricular systolic function is moderately reduced. Atria: The left atrial size is normal. The right atrium is mildly dilated. There is a catheter/pacemaker lead seen in the right atrium. There is no Doppler evidence for an interatrial shunt. Mitral Valve: The mitral valve leaflets appear mildly thickened, but open well. There is trace mitral regurgitation. Aortic Valve: The aortic valve is trileaflet. The aortic valve opens well. There is no aortic valve stenosis. No aortic regurgitation is present. Tricuspid Valve: The tricuspid valve leaflets are thickened and/or calcified, but open well. There is mild tricuspid regurgitation. The right ventricular systolic pressure is estimated to be at least 58 mmHg based on an estimated right atrial pressure of 3 mm Hg. Pulmonic Valve: The pulmonic valve leaflets are thin and pliable; valve motion is normal. There is mild pulmonic regurgitation. Great Vessels: The aortic root is normal size. The dimensions of the ascending aorta are normal. The IVC is of normal diameter and collapses greater than 50% with a sniff. This suggests a low right atrial pressure of 3 mm Hg. Pericardium/ Pleura There is no pericardial effusion. There is no pleural effusion. MMode/2D Measurements & Calculations LVIDd: 3.6 cm LVOT diam: 2.1 cm LVIDs: 2.7 cm Ao root diam: 3.8 cm FS: 25.7 % asc Aorta Diam: 3.7 cm IVSd: 1.2 cm LVPWd: 1.1 cm LV perry. diameter/BSA (cm/m^2): 1.9 LV sys. diameter/BSA (cm/m^2): 1.4 LA A2 area: 14.6 cm2 RA long axis: 4.9 cm LA A4 area: 14.3 cm2 RA area: 19.8 cm2 LA length (vol): 4.6 cm RA vol: 67.7 ml LA vol: 38.3 ml RA : 34.9 ml/m2 LA vol index: 19.8 ml/m2 IVC diam: 1.4 cm RVD1 (basal): 4.7 cm RVD2 (mid): 4.3 cm TAPSE: 1.7 cm Doppler Measurements & Calculations Ao V2 max: 121.2 cm/sec LVOT Max Royal: 68.9 cm/sec Ao V2 mean: 91.4 cm/sec LV V1 max P.9 mmHg Ao max P.9 mmHg LV V1 VTI: 15.1 cm Ao mean P.6 mmHg CHERRIE(I,D): 2.4 cm2 Ao V2 VTI: 22.3 cm CHERRIE(V,D): 2.0 cm2 sev ratio: 0.68 CHERRIE indexed to BSA (cm^2/m^2): 1.2 MV E max royal: 40.2 cm/sec TR max royal: 369.3 cm/sec MV A max royal: 89.8 cm/sec TR max P.6 mmHg MV E/A: 0.45 PA V2 max: 79.6 cm/sec Med Peak E' Royal: 6.9 cm/sec PA V2 mean: 58.4 cm/sec E/E' med: 5.9 PA mean P.5 mmHg Lat Peak E' Royal: 6.4 cm/sec E/E' lat: 6.3 E/e' average: 6.1 MV dec time: 0.42 sec SV([facility]): 52.3 ml Reading Physician:02:04 PM
[2024-01-12 13:00] LABS: BUN Creatinine Ratio 20.3 (6-22); Blood Urea Nitrogen 26 mg/dL (9-20); Calcium 9.2 mg/dL (8.4-10.2); Carbon Dioxide 29 mmol/L (22-32); Chloride 102 mmol/L (98-107); Estimated Glomerular Filt Rate 59 mL/min (>60); Glucose 125 mg/dL (80-110); HEMOLYSIS 19 (0-50); Magnesium 1.7 mg/dL (1.6-2.3); Potassium 5.3 mmol/L (3.4-5.1); Sodium 135 mmol/L (137-145)
[2024-01-12 13:12] LABS: Troponin I 0.032 ng/mL (0.01-0.034)
[2024-01-12] MEDS: ALBUTEROL/IPRATROPIUM 3 ML AMPUL INH ×2 (15:44→20:03)
--- NOTE | 2024-01-12 15:46 | PM.HP.1 ---
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 Evans, radiologist due to findings of bilateral pulmonary emboli on a follow-up chest CT done to reassess the status of his cavitary pneumonia. Patient had the CT done and had just gotten back to the dock on [facility] when he received the call last evening and subsequently returned to the emergency department. He notes progressive dyspnea over the past 2 months. He has been working with pulmonology on his symptoms. He was seen November 11 and placed on a prednisone burst of 40 mg daily, was placed on DuoNebs, received a 5 day course of furosemide, and had recommendations for pulmonary rehab and pulmonary function testing. He had a chest CT performed December 08 which revealed a new 5.4 cm x 2.8 cm ovoid right upper lobe soft tissue mass or dense consolidation with central cavitation, adjacent cystic change, slightly more inferior 2.1 cm spiculated mass which was new compared to May 28, [address] Results of the chest CT reviewed with the patient after they became available. Prescription of Augmentin was sent at that time. He would started the prescription on December 08 as well. He followed up via telehealth on December 17. He reported no significant improvement despite a 9 day course of Augmentin at that time. Recommendations were for a follow-up chest CT in 3 weeks. There was noted concern for malignancy on that chest CT but it was felt by pulmonology that it was more likely infectious given the rapid evolution since his May CT. Follow-up CT scan was done yesterday January 10. It revealed bilateral pulmonary emboli involving the right and left pulmonary arteries extending to the segmental and subsegmental branches. The peripheral position of the clot is suggestive of subacute to chronic time course. There is a spiculated right mid lung nodule along the fissure measuring up to 2 cm that was felt to be suspicious for primary lung malignancy. The right upper lung area of cavitary consolidation had decreased. There is persistent bronchiectasis and opacity with architectural distortion seen in the mid posterior left lung. These were felt to be moderately suspicious for malignancy versus persistent infection. There are also other smaller nodules present particularly seen as wall thickening at the periphery a pulmonary cystic changes. These were felt to be suspicious for indolent/early malignancies. A PET-CT was recommended. It was additionally noted that there are signs of right heart strain with distention of the pulmonary trunk to 3.8 cm. As noted, the radiologist contacted the patient's spouse and recommended returning to the emergency department. In the emergency department, patient had normal vital signs. Heart rate was within normal limits, O2 sats were within normal limits, respiratory rate ranged from 17-28. Bilateral venous Doppler was performed of the lower extremities which revealed nonocclusive right lower extremity DVT involving the common femoral, entire superficial femoral and popliteal veins. Unremarkable left lower extremity. CBC was within normal limits. BMP revealed a creatinine of 1.75. Troponin was 0.023. BNP was 1770. EKG revealed a paced rhythm. Patient was initially given Lovenox. He also received Rocephin and azithromycin. Interventional radiology with [facility] was contacted who advised patient could be admitted to the hospital on heparin drip versus transferred to their hospital for thrombectomy. Patient declined transfer and advised he wanted to stay at [facility]. Telehealth doc was contacted but felt patient should be transferred. Subsequently in the emergency room physician contacted [facility] Interventional Radiology and intervention Radiology. Both ultimately felt that the patient was not a candidate for thrombectomy and recommended admission and heparinization. Currently, patient reports he is not short of breath at rest. He does get short of breath when he is up and moving. He states that he has been short of breath for 2 months, more so in the last 3 weeks. He notes no improvement with antibiotic treatment. He does have a cough but no sputum production. No hemoptysis. No chest pain. No lightheadedness. Did not noticed any asymmetric leg swelling. No recent prolonged travel. No prior history of blood clotting. [facility] Medical History (Updated 01/12/24 @ 16:10 by Stephanie Cooper MD) CVA (cerebral vascular accident) HTN (hypertension) Coronary artery disease Ischemic cardiomyopathy Cavitary pneumonia COPD with acute exacerbation Nicotine dependence, cigarettes, with other nicotine-induced disorders COPD (chronic obstructive pulmonary disease) Social History household members: significant other Smoking Status: Current every day smoker alcohol intake: never Meds Home Medications and Allergies Home Medications Medication Instructions Recorded Confirmed Type albuterol sulfate 90 mcg/actuation 2 inh inhalation Q4H PRN Wheezing 05/14/23 01/12/24 History breath activated powder inhaler atorvastatin 20 mg tablet 20 mg PO BEDTIME 05/14/23 01/12/24 History carvedilol 25 mg tablet 25 mg PO BID 05/14/23 01/12/24 History fluticasone fur. 200 mcg-umeclid 1 inh inhalation DAILY #60 ea 05/14/23 01/12/24 Rx 62.5 mcg-vilant 25 mcg inhalat.powder (Trelegy Ellipta) glipizide 2.5 mg tablet 2.5 mg PO DAILY 05/14/23 01/12/24 History lisinopril 10 mg tablet 10 mg PO BID 05/14/23 01/12/24 History spironolactone 25 mg tablet 25 mg PO DAILY 05/14/23 01/12/24 History umeclidinium 62.5 mcg/actuation 1 inh inhalation DAILY 05/14/23 01/12/24 History blister powder for inhalation (Incruse Ellipta) ipratropium 0.5 mg-albuterol 3 mg 3 ml inhalation Q6H PRN shortness 11/12/23 01/12/24 Rx (2.5 mg base)/3 mL nebulization of breath or wheezing #90 mL soln amoxicillin 875 mg-potassium 1 tab PO BID #42 tabs 12/11/23 01/12/24 Rx clavulanate 125 mg tablet Allergies Allergy/AdvReac Type Severity Reaction Status Date / Time No Known Allergies Allergy Uncoded 01/11/24 20:54 Review of Systems Review of Systems Narrative: All other systems were reviewed negative Exam Vital Signs (past 8 hours): - 01/12/24 08:00 01/12/24 08:01 01/12/24 08:01 Temperature Pulse Rate 66 63 Respiratory Rate 26 H 19 Blood Pressure 127/69 Pulse Oximetry 96 95 Oxygen Flow Rate 01/12/24 08:30 01/12/24 08:30 01/12/24 09:00 Temperature Pulse Rate 64 Respiratory Rate 20 Blood Pressure 128/77 131/78 Pulse Oximetry 97 Oxygen Flow Rate 01/12/24 09:00 01/12/24 09:45 Temperature 98.5 F Pulse Rate 63 73 Respiratory Rate 17 20 Blood Pressure 141/75 H Pulse Oximetry 96 95 Oxygen Flow Rate 0 Oxygen Delivery Method Room Air Oxygen Flow Rate 0 Narrative Exam Narrative: GEN: Elderly male, very pleasant, Alert and oriented x3, no acute distress HEENT: Normocephalic, face symmetric, pupils equal round reactive to light, extraocular movements intact, sclerae anicteric, conjunctiva clear, nares patent, oropharynx reveals an intact soft and hard palate with moist mucous membranes, dentition is fair NECK: Supple, no lymphadenopathy, thyroid without enlargement or nodularity, carotids no bruits CHEST: Respiratory excursions symmetric, diffusely diminished but clear to auscultation bilaterally CV: Regular rate and rhythm, no murmurs, rubs, gallops, PMI nondisplaced ABD: Soft, nontender, nondistended, bowel sounds present in all 4 quadrants, no organomegaly or masses appreciated EXTR: Warm, well perfused, no clubbing/cyanosis/edema SKIN: Warm and dry, without rash NEURO: Alert and oriented x3, grossly intact PSYCH: Mood and affect is within normal limits, judgment and insight are appropriate Objective Labs 01/11/24 18:45 01/12/24 10:15 Labs: Laboratory Results - last 24 hr 01/11/24 01/12/24 18:45 10:15 WBC 10.0 RBC 4.56 Hgb 13.5 Hct 41.6 MCV 91.2 MCH 29.6 MCHC 32.5 RDW 15.2 H Plt Count 277 Neut % (Auto) 61.3 Lymph % (Auto) 15.9 L [place] % (Auto) 11.1 Eos % (Auto) 10.8 H Baso % (Auto) 0.9 Neut # (Auto) 6100 Lymph # (Auto) 1600 [place] # (Auto) 1100 H Eos # (Auto) 1100 H Baso # (Auto) 100 PT 11.6 INR 1.0 APTT 160 H* Sodium 135 L 135 L Potassium 4.8 5.3 H Chloride 102 102 Carbon Dioxide 26 29 BUN 37 H 26 H Creatinine 1.48 H 1.28 H Estimated GFR 50 L 59 L BUN/Creatinine Ratio 25.0 H 20.3 Glucose 93 125 H Calcium 9.0 9.2 Magnesium 1.7 Total Bilirubin 0.4 AST 32 ALT 30 Alkaline Phosphatase 119 Total Creatine Kinase 62 Troponin I 0.023 0.032 C-Reactive Protein 1.5 H NT-Pro-B Natriuret Pep 1770 H Total Protein 6.8 Albumin 4.0 Globulin 2.8 Albumin/Globulin Ratio 1.4 Assessment & Plan Assessment and plan (1) Cavitary pneumonia: Status: Acute (2) COPD with acute exacerbation: Status: Acute (3) COPD (chronic obstructive pulmonary disease): Qualifiers: COPD type: unspecified COPD Qualified Code(s): J44.9 - Chronic obstructive pulmonary disease, unspecified Status: Acute Assessment & Plan narrative: 1. Subacute extensive right lower extremity DVT/bilateral pulmonary emboli Likely the etiology of his progressive shortness breath over the last several weeks as well as the reason why he had not been getting improvement in symptoms from treatment with Augmentin. Patient is admitted to the medical unit for further treatment and monitoring. There is evidence of right heart strain on his chest CT. This is an unprovoked DVT/PE. Patient will continue on a heparin drip for at least 24 hours. Await echocardiogram results to assess further for significant right heart strain. Will send a hypercoagulable panel. I am concerned that his thromboembolic disease could be related to an undiagnosed malignancy, particularly in light of the spiculated mass seen on his most recent CT. He will need close follow-up with pulmonology upon discharge. 2. Cavitary pneumonia, right upper lobe Patient reports he is due to complete Augmentin in the next 1-2 days. We will continue p.o. Augmentin for now. 3. Spiculated right middle lobe lesion with possible other lung lesions Certainly in light of his unprovoked DVT/PEs this is concerning. He will need further evaluation and probable biopsy. 4. COPD Will continue his usual outpatient medication regimen 5. Coronary artery disease Will continue his lisinopril and spironolactone. 6. History of ischemic cardiomyopathy He is status post permanent pacemaker/AICD placement for a remote history of severely depressed ejection fraction. He notes recently on an echocardiogram earlier this year his ejection fraction was up to 60%. Code status DNR DNI per patient. He states that how he feels currently is ?about as compromise as I ever want to be ??and he understands that were he to have a cardiac or respiratory arrest he would be more compromise after resuscitation Prophylaxis On heparin drip Disposition Admit to the medical unit Time-Based Coding :: [TOTAL MINUTES] spent with patient and on the chart (including review of chart, obtaining history, exam, reviewing outside data, placing orders, documenting exam and treatment plan, and counseling patient) on [DATE].
--- NOTE | 2024-01-12 18:12 | PC.NURSE ---
Day shift: Notified MD Cooper of PTT result at 160. Followed heparin protocol: turned heparin drip off x1hr, then restarted while decreasing rate by 4u/kg/hr. Next PTT drawn at 1800. Pt has audible wheezing in Bilat upper lobes. Pt's vitals remain stable, on room air. Notified RT of patient's COPD and order to evaluate and order for nebs. Pt on telemetry, had short episodes of bradcardia down to 38 beats per minute, otherwise normal sinus. MD Cooper aware. Will continue to monitor.
[2024-01-12 18:21] LABS: PTT Partial Thromboplastin Tim 98 SECONDS (25.1-36.5)
[2024-01-12] MEDS: BUDESONIDE 0.5 MG/2 ML NEB INH (20:03)
[2024-01-12] MEDS: ATORVASTATIN 20 MG TABLET PO (20:09)
[2024-01-13] VITALS (17 sets, daily range): BP systolic 107–132; BP diastolic 65–86; PULSE 59–77; RESP 16–20; TEMP 35.6–36.6; O2SAT 91–97
[2024-01-13 00:37] LABS: PTT Partial Thromboplastin Tim 85 SECONDS (25.1-36.5)
[2024-01-13] MEDS: HEPARIN DRIP 25,000 UNIT/500 ML IV.SOLN 21.337 UNIT IV (02:06)
[2024-01-13] MEDS: PANTOPRAZOLE DR 20 MG TABLET PO (05:57)
[2024-01-13 06:07] LABS: Homocysteine 15.2 umol/L (0.0-19.2)
[2024-01-13 06:09] LABS: Add Manual Diff / Slide Review NO; Basophils Absolute Auto 100 /uL (0-100); Basophils Percent Auto 0.7 % (0-2); Eosinophils Absolute Auto 1300 /uL (0-450); Eosinophils Percent Auto 12.4 % (2-4); Hematocrit 40.5 % (41-53); Hemoglobin 13.3 g/dL (13.5-17.5); Lymphocytes Absolute Auto 1600 /uL (1100-4500); Lymphocytes Percent Auto 16.3 % (25-40); Mean Corpuscular HGB Conc 32.9 % (30-36); Mean Corpuscular Hemoglobin 29.7 PG (26-34); Mean Corpuscular Volume 90.2 fL (80-100); Monocytes Absolute Auto 1200 /uL (0-900); Monocytes Percent Auto 11.8 % (3-14); Neutrophils Absolute Auto 5900 /uL (1500-7000); Neutrophils Percent Auto 58.8 % (50-75); Platelet Count 242 X10^3/uL (150-400); Red Blood Cell Count 4.49 X10^6/uL (4.5-5.9); Red Cell Distribution Width 15.4 % (11.6-14.8); White Blood Cell Count 10.1 X10^3/uL (4.5-11.0)
[2024-01-13 06:18] LABS: PTT Partial Thromboplastin Tim 63 SECONDS (25.1-36.5)
[2024-01-13 06:19] LABS: Blood Urea Nitrogen 24 mg/dL (9-20); Calcium 9.1 mg/dL (8.4-10.2); Carbon Dioxide 29 mmol/L (22-32); Chloride 101 mmol/L (98-107); Estimated Glomerular Filt Rate > 60 mL/min (>60); Glucose 129 mg/dL (80-110); HEMOLYSIS < 15 (0-50); Potassium 4.6 mmol/L (3.4-5.1); Sodium 134 mmol/L (137-145)
[2024-01-13] MEDS: HEPARIN 5,000 UNIT/ML VIAL 2500 UNIT IV (06:53)
--- NOTE | 2024-01-13 08:28 | P.PN_ITS ---
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 Evans, radiologist due to findings of bilateral pulmonary emboli on a follow-up chest CT done to reassess the status of his cavitary pneumonia. Patient had the CT done and had just gotten back to the dock on [facility] when he received the call last evening and subsequently returned to the emergency department. He notes progressive dyspnea over the past 2 months. He has been working with pulmonology on his symptoms. He was seen November 11 and placed on a prednisone burst of 40 mg daily, was placed on DuoNebs, received a 5 day course of furosemide, and had recommendations for pulmonary rehab and pulmonary function testing. He had a chest CT performed December 08 which revealed a new 5.4 cm x 2.8 cm ovoid right upper lobe soft tissue mass or dense consolidation with central cavitation, adjacent cystic change, slightly more inferior 2.1 cm spiculated mass which was new compared to May 28, [address] Results of the chest CT reviewed with the patient after they became available. Prescription of Augmentin was sent at that time. He would started the prescription on December 08 as well. He followed up via telehealth on December 17. He reported no significant improvement despite a 9 day course of Augmentin at that time. Recommendations were for a follow-up chest CT in 3 weeks. There was noted concern for malignancy on that chest CT but it was felt by pulmonology that it was more likely infectious given the rapid evolution since his May CT. Follow-up CT scan was done yesterday January 10. It revealed bilateral pulmonary emboli involving the right and left pulmonary arteries extending to the segmental and subsegmental branches. Patient was initially given Lovenox. He also received Rocephin and azithromycin. Interventional radiology with [facility] was contacted who advised patient could be admitted to the hospital on heparin drip versus transferred to their hospital for thrombectomy. Patient declined transfer and advised he wanted to stay at [facility]. Telehealth doc was contacted but felt patient should be transferred. Subsequently in the emergency room physician contacted [facility] Interventional Radiology and intervention Radiology. Both ultimately felt that the patient was not a candidate for thrombectomy and recommended admission and heparinization. S: He was doing well. No dyspnea at rest, but he was had 2 months of persistent and relatively constant dyspnea with exertion. Mild foot edema for the last week. No pleuritic chest pain. He denies recent weight loss. He was seen in pulmonary clinic in the last 10 days. He was still actively smoking. Exam Vital Signs (past 8 hours): - 01/13/24 04:00 01/13/24 07:49 Temperature 97.0 F L 96.9 F L Pulse Rate 62 77 Respiratory Rate 17 18 Blood Pressure 111/67 129/86 Pulse Oximetry 95 94 Oxygen Flow Rate 0 0 Oxygen Delivery Method Room Air Oxygen Flow Rate 0 Narrative Exam Narrative: NAD, alert and oriented. Fluent speech. Lungs are clear, normal rate and effort. Heart is regular, no murmur gallop or rub. Abdomen is soft, non distended. Extremities are free of edema. Objective Labs 01/13/24 05:55 01/13/24 05:55 Labs: Laboratory Results - last 24 hr 01/12/24 01/12/24 01/12/24 10:15 11:20 18:00 WBC RBC Hgb Hct MCV MCH MCHC RDW Plt Count Neut % (Auto) Lymph % (Auto) Mellette % (Auto) Eos % (Auto) Baso % (Auto) Neut # (Auto) Lymph # (Auto) Mellette # (Auto) Eos # (Auto) Baso # (Auto) APTT 160 H* 98 H* D Sodium 135 L Potassium 5.3 H Chloride 102 Carbon Dioxide 29 BUN 26 H Creatinine 1.28 H Estimated GFR 59 L BUN/Creatinine Ratio 20.3 Glucose 125 H Calcium 9.2 Magnesium 1.7 Troponin I 0.032 C-Reactive Protein 1.5 H Homocysteine 15.2 01/13/24 01/13/24 00:13 05:55 WBC 10.1 RBC 4.49 L Hgb 13.3 L Hct 40.5 L MCV 90.2 MCH 29.7 MCHC 32.9 RDW 15.4 H Plt Count 242 Neut % (Auto) 58.8 Lymph % (Auto) 16.3 L Mellette % (Auto) 11.8 Eos % (Auto) 12.4 H Baso % (Auto) 0.7 Neut # (Auto) 5900 Lymph # (Auto) 1600 Mellette # (Auto) 1200 H Eos # (Auto) 1300 H Baso # (Auto) 100 APTT 85 H* 63 H D Sodium 134 L Potassium 4.6 Chloride 101 Carbon Dioxide 29 BUN 24 H Creatinine 1.20 Estimated GFR > 60 BUN/Creatinine Ratio 20.0 Glucose 129 H Calcium 9.1 Magnesium Troponin I C-Reactive Protein Homocysteine [facility] Medical History CVA (cerebral vascular accident) HTN (hypertension) Coronary artery disease Ischemic cardiomyopathy Cavitary pneumonia COPD with acute exacerbation Nicotine dependence, cigarettes, with other nicotine-induced disorders COPD (chronic obstructive pulmonary disease) Social History household members: significant other Smoking Status: Current every day smoker alcohol intake: never Assessment & Plan Assessment & Plan narrative: 1. Subacute extensive right lower extremity DVT/bilateral pulmonary emboli, present on admission and active. Likely the etiology of his progressive shortness breath over the last several weeks as well as the reason why he had not been getting improvement in symptoms from treatment with Augmentin. Patient is admitted to the medical unit for further treatment and monitoring. There is evidence of right heart strain on his chest CT. This is an unprovoked DVT/PE. Patient will continue on a heparin drip for at least 24 hours. Await echocardiogram results to assess further for significant right heart strain. Will send a hypercoagulable panel. I am concerned that his thromboembolic disease could be related to an undiagnosed malignancy, particularly in light of the spiculated mass seen on his most recent CT. He will need close follow-up with pulmonology upon discharge. 2. Cavitary pneumonia, right upper lobe. Present on admission and active. Patient reports he is due to complete Augmentin in the next 1-2 days. We will continue p.o. Augmentin for now. 3. Spiculated right middle lobe lesion with possible other lung lesions, present on admission and active. Certainly in light of his unprovoked DVT/PEs this is concerning. He will need further evaluation and probable biopsy. 4. COPD, present on admission and stable. Will continue his usual outpatient medication regimen 5. Coronary artery disease, present on admission and stable. Will continue his lisinopril and spironolactone. 6. History of ischemic cardiomyopathy, present on admission and stable. He is status post permanent pacemaker/AICD placement for a remote history of severely depressed ejection fraction. He notes recently on an echocardiogram earlier this year his ejection fraction was up to 60%. Additional plans: -continue heparin for another midnight. -discuss with Pulmonary, Dr. García and request that he review imaging. Code status: DNR DNI per patient. He states that how he feels currently is ?about as compromise as I ever want to be ??and he understands that were he to have a cardiac or respiratory arrest he would be more compromise after resuscitation Prophylaxis: On heparin drip Disposition: Admit to the medical unit RAY is January 14. Expect at least 2 midnights of hospital care, this supports inpatient status as patient has a significantly large clot burden with his pulmonary embolism. This places him at high risk for adverse outcomes of his pulmonary embolism including . Time-Based Coding :: [TOTAL MINUTES] spent with patient and on the chart (including review of chart, obtaining history, exam, reviewing outside data, placing orders, documenting exam and treatment plan, and counseling patient) on [DATE].
[2024-01-13] MEDS: AMOXICILLIN/CLAV 875/125 MG 1 TAB PO ×2 (08:45→20:32)
[2024-01-13] MEDS: carvediloL 12.5 MG TABLET 25 MG PO ×2 (08:45→20:32)
[2024-01-13] MEDS: SPIRONOLACTONE 25 MG TABLET PO (08:47)
[2024-01-13] MEDS: lisinopriL 10 MG TABLET PO ×2 (08:47→20:31)
[2024-01-13] MEDS: glipiZIDE 5 MG TABLET 2.5 MG PO (08:47)
[2024-01-13] MEDS: ALBUTEROL/IPRATROPIUM 3 ML AMPUL INH ×4 (10:35→23:49)
--- NOTE | 2024-01-13 11:37 | PT-IP ANOTE ---
Pt discussed in rounds and PT order received. Pt does appear appropriate for PT consult once heparin drip discontinued and he con't on heparin drip at this time.
[2024-01-13 12:08] LABS: PTT Partial Thromboplastin Tim 105 SECONDS (25.1-36.5)
--- NOTE | 2024-01-13 13:58 | CM.DANOTE ---
Patient is a 73 yo male who was admitted INPT Status on 01/12/24 for SOB/Pneumonia. Pt has [facility] and [facility] INS[facility]ANCE for insurance and his PCP is Norman Ríos. EMR was reviewed. Per MD, pt with long hx of cigarette smoking and hx of CVA in 2019 with some residual deficits and EF of 15% to 60% after pacemaker. Pt was being treated for pneumonia outpt setting and now admitted with PEs and COPD exac and to r/o malignancy. PT ordered but on hold today for hep drip. SW met bedside with pt and explained role and he confirms he lives on [address] in a trailer with his girlfriend and he has two local supportive adult Dtrs and grandkids and pt is on good terms with his ex- Abimbola and would like to keep her as his contact. Pt states he drives, does not use DME for ambulation, and denies any hx of HH or SNF. Pt confirms he has no official POA and SW offered POA pwk/brochure to review and complete when he's ready and pt agreeable and states he likely would choose his ex- and maybe his Dtrs. POA brochure out of stock but should have more by tomorrow. Pt confirms his preference is to d/c home when stable and girlfriend can provide transport and assist if needed at d/c. Pt does not anticipate any needs at d/c. Plan: SW to follow closely for PT eval and labs to confirm pt safe for d/c home with girlfriend when medically stable and any further identified needs. BONNIE Arambula Discharge Planning/Care Management CM Discharge Assessment Start: 01/13/24 13:57 Freq: Status: Active Protocol: Document 01/13/24 13:57 BF (Rec: 01/13/24 13:58 BF [id number]) Discharge Planning Assessment Assigned Communications Strategist BONNIE Villalobos DPOA/Assigned Designee Name none Contact Information gave copy of POA pwk Advance Directives? No Advance Directives on File No History Provided By Patient,Family Member,Medical Record Has Patient been admitted in last 30 No days? Prior Living Arrangements Mobile home Household Members significant other Type of transporation used prior to Drives own vehicle admit Independent with ADL's Yes Is patient alert and oriented? Yes Caregiver for Another No DME Already Rented / Owned Cane Comment Pending PT eval and recommendations Barriers to Discharge No Discharge Plan Home Transportation Arrangement States girlfriend can transport him back to [place] Additional Comment Pending PT eval and recommendations Whiteboard Updated in Patient Room with Yes name and ext. # of Communications Strategist Review Status In Process Please Provide Date Initial DC 01/13/24 Assessment Was Performed Next Review Type Continued Stay Review
[2024-01-13 18:35] LABS: PTT Partial Thromboplastin Tim 92 SECONDS (25.1-36.5)
[2024-01-13] MEDS: BUDESONIDE 0.5 MG/2 ML NEB INH (19:35)
[2024-01-13] MEDS: ATORVASTATIN 20 MG TABLET PO (20:32)
[2024-01-14] VITALS (13 sets, daily range): BP systolic 98–121; BP diastolic 58–76; PULSE 62–85; RESP 16–21; TEMP 35.7–36.4; O2SAT 93–98
[2024-01-14 01:07] LABS: PTT Partial Thromboplastin Tim 81 SECONDS (25.1-36.5)
[2024-01-14] MEDS: HEPARIN DRIP 25,000 UNIT/500 ML IV.SOLN 21.337 UNIT IV (03:10)
[2024-01-14] MEDS: PANTOPRAZOLE DR 20 MG TABLET PO (06:18)
[2024-01-14 06:39] LABS: PTT Partial Thromboplastin Tim 67 SECONDS (25.1-36.5)
--- NOTE | 2024-01-14 07:19 | P.PN_ITS ---
Subjective Subjective Interval history: S: He was doing well, improved dyspnea. No other problems overnight. No pain issues including leg pain or swelling. Exam Vital Signs (past 8 hours): - 01/13/24 23:46 01/14/24 00:00 01/14/24 04:00 Temperature 96.8 F L 97.6 F Pulse Rate 63 68 63 Respiratory Rate 16 16 Blood Pressure 115/69 114/76 Pulse Oximetry 96 95 97 Oxygen Delivery Method Room Air Oxygen Flow Rate 0 0 Fraction of Inspired Oxygen 21 Fraction of Inspired Oxygen 21 SaO2/FiO2 Ratio 457 Oxygen Delivery Method Room Air Oxygen Flow Rate 0 Narrative Exam Narrative: NAD, alert and oriented. Fluent speech. Lungs are clear, normal rate and effort. Heart is regular, no murmur gallop or rub. Abdomen is soft, non distended. Extremities are free of edema. Objective Labs 01/13/24 05:55 01/13/24 05:55 Labs: Laboratory Results - last 24 hr 01/13/24 01/13/24 01/14/24 11:46 18:10 00:30 APTT 105 H* D 92 H* 81 H* 01/14/24 06:13 APTT 67 H D PFSH Medical History CVA (cerebral vascular accident) HTN (hypertension) Coronary artery disease Ischemic cardiomyopathy Cavitary pneumonia COPD with acute exacerbation Nicotine dependence, cigarettes, with other nicotine-induced disorders COPD (chronic obstructive pulmonary disease) Social History household members: significant other Smoking Status: Current every day smoker alcohol intake: never Assessment & Plan Assessment & Plan narrative: 1. Subacute extensive right lower extremity DVT/bilateral pulmonary emboli, present on admission and active. 2. Cavitary pneumonia versus mass, right upper lobe. Present on admission and active. Patient reports he is due to complete Augmentin in the next 1-2 days. We will continue p.o. Augmentin for now. 3. Spiculated right middle lobe lesion with possible other lung lesions, present on admission and active. Certainly in light of his unprovoked DVT/PEs this is concerning. He will need further evaluation and probable biopsy. 4. COPD, present on admission and stable. Will continue his usual outpatient medication regimen 5. Coronary artery disease, present on admission and stable. Will continue his lisinopril and spironolactone. 6. History of ischemic cardiomyopathy, present on admission and stable. He is status post permanent pacemaker/AICD placement for a remote history of severely depressed ejection fraction. He notes recently on an echocardiogram earlier this year his ejection fraction was up to 60%. Plan: -discussed him with Interventional Radiology at [facility]. They do recommend a inferior vena cava filter to prevent his large leg clot from embolizing to the lung. He was lung clot burden is too small to mandate a thrombectomy. We did try to arrange for IVC filter and son back today but this fell through due to an emergent ED case at [facility]. He will be NPO tonight I will try again tomorrow. We will continue IV heparin in the meantime. Code status: DNR DNI per patient. He states that how he feels currently is ?about as compromise as I ever want to be ??and he understands that were he to have a cardiac or respiratory arrest he would be more compromise after resuscitation Prophylaxis: On heparin drip Disposition: Admit to the medical unit RAY is January 14. Expect at least 2 midnights of hospital care, this supports inpatient status as patient has a significantly large clot burden with his pulmonary embolism. This places him at high risk for adverse outcomes of his pulmonary embolism including . Time-Based Coding :: [TOTAL MINUTES] spent with patient and on the chart (including review of chart, obtaining history, exam, reviewing outside data, placing orders, documenting exam and treatment plan, and counseling patient) on [DATE].
[2024-01-14] MEDS: ALBUTEROL/IPRATROPIUM 3 ML AMPUL INH ×4 (07:21→18:48)
[2024-01-14] MEDS: BUDESONIDE 0.5 MG/2 ML NEB INH ×2 (07:21→18:48)
[2024-01-14] MEDS: carvediloL 12.5 MG TABLET 25 MG PO (08:33)
[2024-01-14] MEDS: AMOXICILLIN/CLAV 875/125 MG 1 TAB PO (08:33)
[2024-01-14] MEDS: glipiZIDE 5 MG TABLET 2.5 MG PO (08:34)
[2024-01-14] MEDS: lisinopriL 10 MG TABLET PO (08:34)
[2024-01-14] MEDS: SPIRONOLACTONE 25 MG TABLET PO (08:34)
--- NOTE | 2024-01-14 11:45 | PT.IIE ---
Current Diagnoses Pneumonia, unspecified organism (01/12/24) Chronic obstructive pulmonary disease with (acute) exacerbation (01/12/24) Chronic obstructive pulmonary disease, unspecified (01/12/24) Other disorders of lung (01/12/24) Medical History (Last Reviewed 01/13/24 @ 08:31 by Fam Lr MD) Cavitary pneumonia COPD (chronic obstructive pulmonary disease) COPD with acute exacerbation Coronary artery disease CVA (cerebral vascular accident) HTN (hypertension) Ischemic cardiomyopathy Nicotine dependence, cigarettes, with other nicotine-induced disorders Physical Therapy Inpatient Evaluation/Re-Eval M1 PT/OT-IP Prior Functional Status Start: 01/14/24 13:38 Freq: NEEDED Status: Active Protocol: Document 01/14/24 11:45 AB (Rec: 01/14/24 13:48 AB [id number]) Medical Review Prior Functional Status Medical History Reviewed Yes Communication able to make needs known Mobility and Gait pt stated that he was independent with all mobilities and ambulation without AD Social History Household Members significant other Living Arrangements RV Number of Floors (Floors) One Floor Number of Stairs To Enter/Railing? 4 steps L rail ascending Home Environment Standard Height Toilet,Walk in Shower Home Equipment Hand Held Shower M2 PT-IP Current Condition Start: 01/14/24 13:38 Freq: NEEDED Status: Active Protocol: Document 01/14/24 11:45 AB (Rec: 01/14/24 13:48 AB [id number]) Physical Therapy Current Condition Current Condition Evaluation Date 01/14/24 Treatment Diagnosis PE; PNA; difficulty in walking Onset Date 01/12/24 M3 PT-IP Subjective Start: 01/14/24 13:38 Freq: NEEDED Status: Active Protocol: Document 01/14/24 11:45 AB (Rec: 01/14/24 13:48 AB [id number]) Subjective Physical Therapy Visit Type Type Initial Evaluation Visit Start Time 11:45 Visit Stop Time 12:05 Number of DOCTOR OF CHIROPRACTIC Visits 0 Physical Therapy Visit Comments Patient Comments agreeable to do PT Therapy Pain Assessment Pain Present Pain Present Denied Pain M4 PT-IP Mobility and Gait Start: 01/14/24 13:38 Freq: NEEDED Status: Active Protocol: Document 01/14/24 11:45 AB (Rec: 01/14/24 13:48 AB [id number]) PT-Bed Mobility Assessment Supine to Sit Supine to Sit Independent PT-Transfer Assessment Sit to and From Stand Sit to and from Stand Independent Equipment Transfer Assistive Device None,Gait Belt Orthotic/Prosthetic Devices or Brace: No Transfers Transfer Destination Bed Transfer Technique ambulated Transfer Ability Level of Assist Standby Assistance Comments Mobility Comments pt supine in bed and agreeable to do PT. obtained PLOF and home setup. BP: 105/62 O2 sat at RA: 95%. completed supine to sit mod I. able to sit on EOB SBA. sit to stand mod I and ambulated in room ~ 50 ft SBA. pt sat on the chair. c/o SOB towards end of ambulation. O2 sat checked: 95-96% at RA. completed up/down step stool without AD SBA. pt is impulsive and cued to slow down. pt sat back on chair. positioned pt on the chair. call light and table placed within reach. informed pt that no further PT needs at this time and pt agreed. Gait Assessment Gait Gait Assistance Required: Standby Assistance Distance (Feet) 50 Able to Maintain Weight Bearing Status Yes During Gait Assistive Devices Assistive Device None,Gait Belt Orthotic/Prosthetic Devices or Brace: No Gait Deviations General Gait Pattern Decreased Stride Length Factors Limiting Gait Function Factors Limiting Gait Function Decreased Activity Tolerance, Poor Safety Awareness Stair Climbing Assessment Evaluation Level of Assist On Stairs Standby Assistance Devices Stair Climbing Assistive Devices None Technique/Endurance Stair Climbing Direction Ascend and Descend Stair Climbing Technique Step to Step Number of Steps Climbed 1 Query Text: Stair Climbing Set # Repetitions (reps) 3 PT-Balance Assessment Sitting Balance and Reactions Static Sitting Balance Ability Normal Dynamic Sitting Balance Ability Normal Standing Balance and Reactions Static Standing Balance Ability Good Dynamic Standing Balance Ability Good Device Used without aD M5 PT-IP Objective Assessments Start: 01/14/24 13:38 Freq: NEEDED Status: Active Protocol: Document 01/14/24 11:45 AB (Rec: 01/14/24 13:48 AB [id number]) Orientation Orientation/Cognition Level of Alertness Alert Orientation Name,Place,Situation Language Function Ability Hard of Hearing Safety Awareness Decreased Safety Awareness Memory Description No Deficits Noted Gross Range of Motion Lower Extremity ROM Assessment Within Functional Limits Strength Lower Extremity Strength Assessment Within Functional Limits Coordination Assessment Gross Coordination Gross Coordination WNL Sensation Assessment Sensation Gross Sensation WNL Muscle Tone Muscle Tone WNL Yes M6 PT-IP Treatment Start: 01/14/24 13:38 Freq: NEEDED Status: Active Protocol: Document 01/14/24 11:45 AB (Rec: 01/14/24 13:48 AB [id number]) Physical Therapy Treatment Education Education Provided Safety M7 PT-IP Assessment and Plan Start: 01/14/24 13:38 Freq: NEEDED Status: Active Protocol: Document 01/14/24 11:45 AB (Rec: 01/14/24 13:48 AB [id number]) PT Summary Assessment and Plan Potential Rehabilitation Potential Fair Status of Condition at Evaluation Evolving Summary Impairments Pain,ROM,Strength,Balance, Coordination,Sensation,Tone, Cognition,Bed Mobility, Transfers,Gait,Activity Tolerance Assessment Summary pt is a 73 y/o M with c/o SOB and admitted for PNA and PE. pt requiring SBA with ambulation without AD and o2 sat maintained: 95-96% after ambulation. pt to continue mobilizing and ambulating with nursing staff. No futher PT needs at this time. Frequency of Treatment Frequency Of Treatment Discharge Treatment Plan Physical Therapy Treatment Plan Bed Mobility Training,Transfer Training,Gait Training, Therapeutic Exercise,Balance Retraining,Discharge Planning, Hot or Cold Pack,Neuromuscular Re-ed,Coordination Retraining Precautions Other Precautions falls Recommendations To Nursing Amount of Assist Needed Standby Assistance Discharge Recommendations PT Discharge Recommendations Home with Assistance Transportation Needs at Discharge Private Vehicle
--- NOTE | 2024-01-14 11:47 | CM.DPC ---
DCP Cont. Reviewed EMR and team rounds for status updates. Plan is for pt to stay 1-more night for cont. heparin tx, RAY is tomorrow, 01/14. Monitoring for any further evolving d/c needs.
[2024-01-14] MEDS: ATORVASTATIN 20 MG TABLET PO (21:12)
[2024-01-15] VITALS (8 sets, daily range): BP systolic 100–117; BP diastolic 58–64; PULSE 61–77; RESP 14–20; TEMP 36.3–36.8; O2SAT 95–97
[2024-01-15] MEDS: HEPARIN DRIP 25,000 UNIT/500 ML IV.SOLN 21.337 UNIT IV (01:28)
[2024-01-15] MEDS: PANTOPRAZOLE DR 20 MG TABLET PO (05:17)
[2024-01-15 06:33] LABS: PTT Partial Thromboplastin Tim 66 SECONDS (25.1-36.5)
[2024-01-15] MEDS: BUDESONIDE 0.5 MG/2 ML NEB INH (07:13)
[2024-01-15] MEDS: ALBUTEROL/IPRATROPIUM 3 ML AMPUL INH ×2 (07:13→11:31)
--- NOTE | 2024-01-15 07:31 | PM.PN.1 ---
Subjective Subjective Interval history: Summary: This patient has recently treated for a cavitary possible pneumonia and lung mass which is yet to be biopsied. The patient had subacute dyspnea for several weeks, primarily with exertion. Ultimately a CTA revealed pulmonary embolism and leg ultrasound revealed fairly extensive right leg DVT included in the common femoral, entire superficial femoral, and popliteal veins. On the night of admission he was discussed with IR at [facility] and [facility] who felt that his pulmonary clot load was not enough to mandate thrombectomy. I discussed his leg ultrasound and CTA with Dr. Yen, IR at [facility] on January 13. He recommended consideration of IVC filter. I attempted to get the patient over to [facility] for a filter and then back on January 13 but he was bumped due to an emergency case. He has been on heparin drip since arrival. S: Exam Vital Signs (past 8 hours): - 01/15/24 00:00 01/15/24 04:00 01/15/24 07:17 Temperature 97.3 F L 97.6 F Pulse Rate 62 75 77 Respiratory Rate 20 20 16 Blood Pressure 110/63 100/58 L Pulse Oximetry 95 96 97 Oxygen Delivery Method Room Air Oxygen Flow Rate 0 0 Fraction of Inspired Oxygen 21 SaO2/FiO2 Ratio 457 Oxygen Delivery Method Room Air Oxygen Flow Rate 0 Narrative Exam Narrative: NAD, alert and oriented. Fluent speech. Lungs are clear, normal rate and effort. Heart is regular, no murmur gallop or rub. Abdomen is soft, non distended. Extremities are free of edema. Objective Imaging Multiple studies:: Radiologist's impression: Echo: Read pending. Leg US: FINDINGS: Right: Internal echoes and incomplete compressibility noted involving the common femoral, entire superficial femoral, popliteal veins. Associated diffuse subcutaneous edema. Veins in the calf appear patent with appropriate compressibility. Left: The common femoral, femoral, popliteal, and the visualized calf veins are normally compressible, and free of intraluminal thrombus. Color and pulse Doppler demonstrate normal phasic intravascular flow. There is normal augmentation response to distal compression maneuver. IMPRESSION: Nonocclusive right lower extremity deep venous thrombosis. Unremarkable left lower extremity deep venous system. Chest CT January 10: Bilateral pulmonary emboli involving the right and left pulmonary arteries extending to the segmental and subsegmental branches, peripheral position of the clot is suggestive of subacute to chronic time course. Spiculated right mid lung nodule along the fissure measuring up to 2 cm is suspicious for primary lung malignancy. Right upper lung area of cavitary consolidation has decreased, with moderate persistent opacity and architectural distortion. Persistent bronchiectasis and opacity with architectural distortion also seen in the mid posterior left lung. These are moderate suspicion for malignancy versus persistent infection. Other smaller nodules are present, particularly seen as wall thickening at the periphery of pulmonary cystic changes. These are suspicious for indolent/early malignancies. A PET-CT could be helpful Chest CT December 08: IMPRESSION: 1. 5.4 cm x 2.8 cm ovoid right upper lobe soft tissue mass with central cavitation and adjacent cystic changes seen within a background of extensive centrilobular emphysema. Slightly more inferiorly, there is a 2.1 cm rounded spiculated soft tissue mass associated with this cavitary lesion. These findings are new compared to prior chest CT of 05/28/2023 and could represent necrotizing pneumonia with adjacent scar, however, an underlying neoplasm is not entirely excluded. Continued chest CT follow-up in 3 months and/or comparison with more recent outside imaging is recommended. 2. Focal area of subpleural soft tissue thickening along the medial right upper lobe abutting the mediastinum and area of consolidation within the superior segment of the left lower lobe with associated bronchiectasis and adjacent architectural distortion possibly related to scarring. Continued follow-up with attention to these abnormalities on follow-up chest CT is recommended. Labs 01/13/24 05:55 01/13/24 05:55 Labs: Laboratory Results - last 24 hr 01/15/24 06:01 APTT 66 H PFSH Medical History CVA (cerebral vascular accident) HTN (hypertension) Coronary artery disease Ischemic cardiomyopathy Cavitary pneumonia COPD with acute exacerbation Nicotine dependence, cigarettes, with other nicotine-induced disorders COPD (chronic obstructive pulmonary disease) Social History household members: significant other Smoking Status: Current every day smoker alcohol intake: never Assessment & Plan Assessment & Plan narrative: 1. Subacute extensive right lower extremity DVT/bilateral pulmonary emboli, present on admission and active. 2. Cavitary pneumonia versus mass, right upper lobe. Present on admission and active. 3. Spiculated right middle lobe lesion with possible other lung lesions, present on admission and active. 4. COPD, present on admission and stable. 5. Coronary artery disease, present on admission and stable. 6. History of ischemic cardiomyopathy, present on admission and stable. He is status post permanent pacemaker/AICD placement for a remote history of severely depressed ejection fraction. He notes recently on an echocardiogram earlier this year his ejection fraction was up to 60%. Plan: -discussed him with Interventional Radiology at [facility]. They do recommend a inferior vena cava filter to prevent his large leg clot from embolizing to the lung. He was lung clot burden is too small to mandate a thrombectomy. We did try to arrange for IVC filter and son back today but this fell through due to an emergent ED case at [facility]. He will be NPO tonight I will try again tomorrow. We will continue IV heparin in the meantime. -continue heparin drip. Code status: DNR DNI per patient. He states that how he feels currently is ?about as compromise as I ever want to be ??and he understands that were he to have a cardiac or respiratory arrest he would be more compromise after resuscitation Prophylaxis: On heparin drip Disposition: Admit to the medical unit Time-Based Coding :: [TOTAL MINUTES] spent with patient and on the chart (including review of chart, obtaining history, exam, reviewing outside data, placing orders, documenting exam and treatment plan, and counseling patient) on [DATE].
[2024-01-15] MEDS: lisinopriL 10 MG TABLET PO (09:01)
[2024-01-15] MEDS: SPIRONOLACTONE 25 MG TABLET PO (09:02)
[2024-01-15] MEDS: glipiZIDE 5 MG TABLET 2.5 MG PO (09:02)
[2024-01-15] MEDS: carvediloL 12.5 MG TABLET 25 MG PO (09:02)
--- NOTE | 2024-01-15 11:53 | CM.DPC ---
DCP Cont. Reviewed EMR and team rounds for status updates. Per Hospitalist, plan is to cont. to try and get pt transferred to [facility] for the placement of an IVC filter. Pending bed availability. Will cont. to monitor plan for any evolving d/c needs.
--- NOTE | 2024-01-15 12:35 | PM.DS.1 ---
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 Evans, radiologist due to findings of bilateral pulmonary emboli on a follow-up chest CT done to reassess the status of his cavitary pneumonia. Patient had the CT done and had just gotten back to the dock on [facility] when he received the call last evening and subsequently returned to the emergency department. He notes progressive dyspnea over the past 2 months. He has been working with pulmonology on his symptoms. He was seen November 11 and placed on a prednisone burst of 40 mg daily, was placed on DuoNebs, received a 5 day course of furosemide, and had recommendations for pulmonary rehab and pulmonary function testing. He had a chest CT performed December 08 which revealed a new 5.4 cm x 2.8 cm ovoid right upper lobe soft tissue mass or dense consolidation with central cavitation, adjacent cystic change, slightly more inferior 2.1 cm spiculated mass which was new compared to May 28, [address] Results of the chest CT reviewed with the patient after they became available. Prescription of Augmentin was sent at that time. He would started the prescription on December 08 as well. He followed up via telehealth on December 17. He reported no significant improvement despite a 9 day course of Augmentin at that time. Recommendations were for a follow-up chest CT in 3 weeks. There was noted concern for malignancy on that chest CT but it was felt by pulmonology that it was more likely infectious given the rapid evolution since his May CT. Follow-up CT scan was done yesterday January 10. It revealed bilateral pulmonary emboli involving the right and left pulmonary arteries extending to the segmental and subsegmental branches. The peripheral position of the clot is suggestive of subacute to chronic time course. There is a spiculated right mid lung nodule along the fissure measuring up to 2 cm that was felt to be suspicious for primary lung malignancy. The right upper lung area of cavitary consolidation had decreased. There is persistent bronchiectasis and opacity with architectural distortion seen in the mid posterior left lung. These were felt to be moderately suspicious for malignancy versus persistent infection. There are also other smaller nodules present particularly seen as wall thickening at the periphery a pulmonary cystic changes. These were felt to be suspicious for indolent/early malignancies. A PET-CT was recommended. It was additionally noted that there are signs of right heart strain with distention of the pulmonary trunk to 3.8 cm. As noted, the radiologist contacted the patient's spouse and recommended returning to the emergency department. In the emergency department, patient had normal vital signs. Heart rate was within normal limits, O2 sats were within normal limits, respiratory rate ranged from 17-28. Bilateral venous Doppler was performed of the lower extremities which revealed nonocclusive right lower extremity DVT involving the common femoral, entire superficial femoral and popliteal veins. Unremarkable left lower extremity. CBC was within normal limits. BMP revealed a creatinine of 1.75. Troponin was 0.023. BNP was 1770. EKG revealed a paced rhythm. Patient was initially given Lovenox. He also received Rocephin and azithromycin. Interventional radiology with [facility] was contacted who advised patient could be admitted to the hospital on heparin drip versus transferred to their hospital for thrombectomy. Patient declined transfer and advised he wanted to stay at [facility]. Telehealth doc was contacted but felt patient should be transferred. Subsequently in the emergency room physician contacted [facility] Interventional Radiology and intervention Radiology. Both ultimately felt that the patient was not a candidate for thrombectomy and recommended admission and heparinization. Currently, patient reports he is not short of breath at rest. He does get short of breath when he is up and moving. He states that he has been short of breath for 2 months, more so in the last 3 weeks. He notes no improvement with antibiotic treatment. He does have a cough but no sputum production. No hemoptysis. No chest pain. No lightheadedness. Did not noticed any asymmetric leg swelling. No recent prolonged travel. No prior history of blood clotting. Discharge Providers Provider Date of admission: 01/12/24 07:48 Discharge Date: 01/15/24 Primary care physician: Norman Ríos MD Consults: 01/13/24 10:50 Consult to Physical Therapy Evaluate & Treat Comment: Physician Instructions: Evaluate and Treat Discharge provider: Fam Lr MD Summary Hospital Course Discharge Diagnosis: 1. Subacute extensive right lower extremity DVT/bilateral pulmonary emboli, present on admission and active. 2. Cavitary pneumonia versus mass, right upper lobe. Present on admission and active. 3. Spiculated right middle lobe lesion with possible other lung lesions, present on admission and active. Certainly in light of his unprovoked DVT/PEs this is concerning. He will need further evaluation and probable biopsy. 4. COPD, present on admission and stable. 5. Coronary artery disease, present on admission and stable. 6. History of ischemic cardiomyopathy, present on admission and stable. He is status post permanent pacemaker/AICD placement for a remote history of severely depressed ejection fraction. He notes recently on an echocardiogram earlier this year his ejection fraction was up to 60%. Hospital Course: Patient was admitted with evidence of pulmonary embolism and a right leg DVT. This is in context of a recent possible pneumonia as well as a cavitary lesion and associated pulmonary mass. He also has hilar adenopathy. He was followed by Dr. García of Pulmonary Medicine and was sent into the ER after a repeat CT scan indicated pulmonary embolism. At the time of admission he was discussed with IR at [facility] at [facility] who recommended against a pulmonary thrombectomy procedure. I further discussed the case with IR at [facility] the next day with regards to his fairly extensive right leg clot and initial recommendations were for IVC, however upon further review with IR of the next day they recommended against an IVC filter. The patient was treated with heparin the entire time he was here and then converted to apixaban. Clinically he was doing well the entire time he was here without hypoxemia or abnormal vital signs. He will be discharged on apixaban and contact Dr. García within the next several days for next steps, which will likely include a biopsy strategy for his lung cancer. I did discuss whether or not he would be interested in further diagnosis and treatment and he said he would want to know diagnosis and treatment would be contingent upon the risks and benefits. Status at Discharge Cognitive/behavioral status at discharge: oriented Functional status at discharge: independent ambulation Overall status at discharge: patient is back to baseline Time Spent with Patient Time spent: Greater than 30 minutes Exam Vital Signs (past 8 hours): - 01/15/24 07:17 01/15/24 08:00 01/15/24 09:00 Temperature 97.6 F 98.2 F Pulse Rate 77 65 61 Respiratory Rate 16 14 18 Blood Pressure 108/62 117/64 Pulse Oximetry 97 96 95 Oxygen Delivery Method Room Air Oxygen Flow Rate 0 01/15/24 09:01 01/15/24 09:02 01/15/24 11:43 Temperature Pulse Rate 61 61 77 Respiratory Rate 16 Blood Pressure 117/64 117/64 Pulse Oximetry 97 Oxygen Delivery Method Room Air Oxygen Flow Rate Fraction of Inspired Oxygen 21 SaO2/FiO2 Ratio 457 Oxygen Delivery Method Room Air Oxygen Flow Rate 0 Narrative Exam Narrative: NAD, alert and oriented. Fluent speech. Lungs are clear, normal rate and effort. Heart is regular, no murmur gallop or rub. Abdomen is soft, non distended. Extremities are free of edema. Objective ECG Impression: Atrial-sensed ventricular-paced rhythm Imaging Multiple studies:: Radiologist's impression: Chest CTA: Bilateral pulmonary emboli involving the right and left pulmonary arteries extending to the segmental and subsegmental branches, peripheral position of the clot is suggestive of subacute to chronic time course. Spiculated right mid lung nodule along the fissure measuring up to 2 cm is suspicious for primary lung malignancy. Right upper lung area of cavitary consolidation has decreased, with moderate persistent opacity and architectural distortion. Persistent bronchiectasis and opacity with architectural distortion also seen in the mid posterior left lung. These are moderate suspicion for malignancy versus persistent infection. Other smaller nodules are present, particularly seen as wall thickening at the periphery of pulmonary cystic changes. These are suspicious for indolent/early malignancies. Vascular ultrasound: Nonocclusive right lower extremity deep venous thrombosis. Unremarkable left lower extremity deep venous system. Labs 01/13/24 05:55 01/13/24 05:55 Labs: Laboratory Results - last 24 hr 01/15/24 06:01 APTT 66 H PFS Medical History CVA (cerebral vascular accident) HTN (hypertension) Coronary artery disease Ischemic cardiomyopathy Cavitary pneumonia COPD with acute exacerbation Nicotine dependence, cigarettes, with other nicotine-induced disorders COPD (chronic obstructive pulmonary disease) Social History household members: significant other Smoking Status: Current every day smoker alcohol intake: never Discharge Assessment & Plan Assessment and Plan Assessment: 1. Subacute extensive right lower extremity DVT/bilateral pulmonary emboli, present on admission and active. 2. Cavitary pneumonia versus mass, right upper lobe. Present on admission and active. 3. Spiculated right middle lobe lesion with possible other lung lesions, present on admission and active. 4. COPD, present on admission and stable. 5. Coronary artery disease, present on admission and stable. 6. History of ischemic cardiomyopathy, present on admission and stable. -He is status post permanent pacemaker/AICD placement for a remote history of severely depressed ejection fraction. He notes recently on an echocardiogram earlier this year his ejection fraction was up to 60%. Plan of Treatment: Discharge home with the apixaban 10 b.i.d. for 7 days, then 5 b.i.d.. Patient will follow up with his pulmonary doctor next week for further instructions and next steps. Discharge Plan Discharge Plan Patient Disposition: Home Provider Discharge Comment: IVC filter is no longer recommended, stable for discharge home on apixaban for DVT and pulmonary embolism. We will leave a message for his prescription clerk for short term follow up. Discharge orders & Medications Prescriptions: New apixaban 5 mg (74 tabs) tablets,dose pack See Rx Instructions .ROUTE .COMPLEX Qty: 74 0RF Rx Instructions: orally per package directions 10 mg BID for 7 days, then 5mg BOD thereafter (PO) Continued ipratropium-albuterol 0.5 mg-3 mg(2.5 mg base)/3 mL solution for nebulization 3 ml inhalation Q6H PRN (Reason: shortness of breath or wheezing) Qty: 90 0RF carvedilol 25 mg tablet 25 mg PO BID Rx Instructions: must administer with a meal/food atorvastatin 20 mg tablet 20 mg PO BEDTIME spironolactone 25 mg tablet 25 mg PO DAILY glipizide 2.5 mg tablet 2.5 mg PO DAILY lisinopril 10 mg tablet 10 mg PO BID albuterol sulfate 90 mcg/actuation aerosol powdr breath activated 2 inh inhalation Q4H PRN (Reason: Wheezing) Incruse Ellipta 62.5 mcg/actuation blister with device 1 inh inhalation DAILY Trelegy Ellipta 200-62.5-25 mcg blister with device 1 inh inhalation DAILY Qty: 60 0RF Rx Instructions: rinse mouth with water, gargle and spit after each use; replace ALL of Incruse Ellipta, fluticasone salmeterol disc, Advair HFA inhaler Discontinued amoxicillin-pot clavulanate 875-125 mg tablet 1 tab PO BID Qty: 42 0RF Rx Instructions: Take 2 times per day for 3 weeks. Medication counseling provided by Pharmacist: No Follow up/Referrals: Norman Ríos MD [Primary Care Provider] - Discharge Health Status Multidrug resistant organism: No MDRO Diet/Activity/Treatments Diet: Carb-consistent/Diabetic Visit Report/Discharge Packet Instructions: DI for Deep Vein Thrombosis, DI for Pulmonary Embolism Stand Alone Forms: Patient Portal/API, Stroke Signs & Symptoms Discharge Data Primary Care Provider: Norman Ríos Quality MIPS - DC The patient has a history of heart transplant or Left Ventricular Assist Device (LVAD). If yes, STOP here.: Yes The patient has current or prior documentation of left ventricular ejection fraction (LVEF) less than or equal to 40%, or moderate or severely depressed left ventricular systolic function.: No
[2024-01-15] MEDS: APIXABAN 5 MG TABLET 10 MG PO (12:45)
[2024-01-15 17:11] LABS: Antithrombin Activity 88 % (75-135); Antithrombin Antigen 99 % (72-124); Factor VIII Activity, Clotting 140 % (56-140); Protein S Antigen 111 % (60-150)
[2024-01-18 16:39] LABS: Protein C Antigen 83 % (60-150)
[2024-01-19 11:08] LABS: Cardiolipin Ab IgG <9 GPL U/mL (0-14); Cardiolipin Ab IgM <9 MPL U/mL (0-12)
== END 2024-01-15 13:58 | disposition home or self-care (01) | DRG 299 ==
LOC: ED 01-12 04:26 → AC 01-12 07:49
PROVIDERS: Hospitalist; Internal Medicine; Admitting Provider Family Medicine; Emergency Provider Emergency Medicine; PCP Family Medicine; Referring Provider Emergency Medicine; Visit Provider Family Medicine
DX: I82.411 Acute embolism and thrombosis of right femoral vein (principal); I26.94 Multiple subsegmental thrombotic pulmonary emboli without acute cor pulmonale; J18.8 Other pneumonia, unspecified organism; J44.0 Chronic obstructive pulmonary disease with (acute) lower respiratory infection; I82.431 Acute embolism and thrombosis of right popliteal vein; J47.9 Bronchiectasis, uncomplicated; I25.10 Atherosclerotic heart disease of native coronary artery without angina pectoris; J98.4 Other disorders of lung; R59.0 Localized enlarged lymph nodes; I10 Essential (primary) hypertension; R91.8 Other nonspecific abnormal finding of lung field; F17.210 Nicotine dependence, cigarettes, uncomplicated; I69.312 Visuospatial deficit and spatial neglect following cerebral infarction; I25.2 Old myocardial infarction; Z66 Do not resuscitate; Z95.0 Presence of cardiac pacemaker; Z86.79 Personal history of other diseases of the circulatory system
CPT/HCPCS: 36415; 71260; 71275; 80048; 80053; 81241; 82550; 83090; 83520; 83735; 83880; 84484; 85025; 85240; 85300; 85301; 85302; 85306; 85610; 85730; 86140; 86147; 86148; 93005; 93306; 93970; 94640; 94760; 96365; 96366; 96367; 96368; 96372; 97162; 97530; 99284; 99291; 99406; J0696; J1644; J1650; Q9967

== ENCOUNTER → 2024-03-05 12:39 | Outpatient (CLI) | payer MEDICARE, OTHER, SELFPAY ==
[2024-01-12 09:56] VITALS: BMI 24.0
--- NOTE | 2024-03-05 12:43 | DI.CT.S_ITS ---
PROCEDURE: CT CHEST WO CON INDICATIONS: Cavitary nodule, concern for malignancy, eval for change TECHNIQUE: Noncontrast 5 mm thick sections acquired from the pulmonary apices to the posterior costophrenic angles. 1 mm lung window, 5 mm thick coronal and sagittal and 7 mm axial MIP reformats were then acquired. For radiation dose reduction, the following was used: automated exposure control, adjustment of mA and/or kV according to patient size. COMPARISON: [facility], CT, CT CHEST W CON, 01/11/2024, 10:43. [facility], CT, CT LUNG LOW DOSE SCREENING, 05/28/2023, 15:16. [facility], CT, CT ANGIO CHEST PE PROTOCOL, 01/11/2024, 23:10. [facility], CT, CT CHEST WO CON, 12/09/2023, 12:28. FINDINGS: Image quality: Diagnostic. Lower Neck: No enlarged lymph nodes. Thyroid: There is a 2.1 x 1.9 cm nodule in the left thyroid lobe. Axillae: No enlarged lymph nodes. Chest Wall: Unremarkable. There is a cardiac pacemaker in the left anterior chest. Gynecomastia. Bones: Scoliosis and spondylitic changes noted. Lungs and Pleura: There is a 1.7 x 2.2 x 1.9 cm spiculated nodule in the right upper lobe (series 3 image 136 close). In addition, there is a large irregular masslike density more posterior superiorly in the right upper lobe (series 3 image 112), measuring 2.9 x 2.7 by 3.0 cm. This nodule is less cavitary and more solid in appearance. A 1.0 x 0.6 cm spiculated nodule in the right middle lobe (series 3 image 188). A 0.6 x 1.3 cm spiculated nodule in the right hilar region (series 3 image 179). There is a 3.5 x 3.5 x 5.4 cm airspace density in the superior segment of the left lower lobe. There is associated bronchiectasis. Smaller subpleural nodules are seen bilaterally. Moderate to severe emphysema. No pneumothorax or pleural effusions. Heart: Heart size is normal. No pericardial effusion. Thoracic Vessels: The aorta and pulmonary arteries demonstrate normal size. Mediastinum and Chloe: No enlarged lymph nodes. Esophagus: No wall thickening. No hiatal hernia. Upper Abdomen: Visualized upper abdomen solid organs and bowel loops appear normal. IMPRESSION: 1. A 1.7 x 2.2 x 1.9 cm spiculated nodule in the right upper lobe, highly suspicious for primary lung cancer. Although the lesion is not significant changed in size, PET-CT is recommended for further evaluation. 2. A 2.9 x 2.7 by 3.0 cm irregular masslike density in the right upper lobe, less cavitary and more solid in appearance. Neoplasm versus inflammatory/infectious mass. Multiple smaller nodules are present bilaterally. These lesions can be evaluated by PET-CT at same time. 3. An airspace opacity in the superior segment of the left lower lobe with associated bronchiectasis, most likely infectious or inflammatory in nature. 4. Moderate centrilobular emphysema. 5. No mediastinal lymphadenopathy. 6. Gynecomastia. Dictated by: Nas Schuler M.D. on 03/05/2024 at 13:29 Approved by: Nas Schuler M.D. on 03/05/2024 at 14:04
== END ==
LOC: CT 12:42
PROVIDERS: PCP Family Medicine; Referring Provider Internal Medicine Critical Care Medicine; Visit Provider Internal Medicine Critical Care Medicine
DX: R91.8 Other nonspecific abnormal finding of lung field (principal); J18.9 Pneumonia, unspecified organism; J98.4 Other disorders of lung; E04.1 Nontoxic single thyroid nodule; J43.2 Centrilobular emphysema; N62 Hypertrophy of breast; Z95.0 Presence of cardiac pacemaker
CPT/HCPCS: 71250